=== PATIENT | male | born 1955 | race Caucasian/White ===

== ENCOUNTER 2017-06-18 01:16 | Inpatient (IN) ==
[2017-06-18] MEDS ORDERED: 0.9 % Sodium Chloride 500 ML IVC ONE (01:20)
--- NOTE | 2017-06-18 01:25 | Emergency Department Note ---
Disposition Clinical Impression: Chest pain Qualifiers: Chest pain type: unspecified Qualified Code(s): R07.9 - Chest pain, unspecified Hypertension Qualifiers: Hypertension type: unspecified Qualified Code(s): I10 - Essential (primary) hypertension Disposition: Admitted As Inpatient Condition: Fair [facility] Provider[facility] - Forms: ED Satisfaction Letter Time of Disposition: 02:23 Chest Pain HPI - General Chief Complaint: ED Chest Pain Time Seen by Provider: 06/18/17 01:19 Source: patient Mode of arrival: EMS Limitations: no limitations Vital Signs Reviewed: Yes Nursing Notes Reviewed: Yes - History of Present Illness HPI Narrative: 62-year-old male with history of hypertension, CAD presents for evaluation of chest pain. [facility] and was admitted there for fever with UTI. Patient states that he started developed chest pain peroxide 3 hours prior to arrival. Patient reports retrosternal chest pain without radiation. Nonexertional. Patient reports some diaphoresis and some nausea and vomiting. Patient was given antiemetics which improved vomiting. He also has a history of A. fib. Patient was transported via EMS. Patient was started on a nitroglycerin drip which is seen to improve his chest pain. - Related Data Home Medications Medication Instructions Recorded Confirmed Allopurinol [Zyloprim 300 MG] 300 mg PO DAILY 07/14/15 07/14/15 Aspirin Enteric Coated [Aspirin EC] 81 mg PO DAILY 07/14/15 07/14/15 Atorvastatin [Lipitor] 40 mg PO DAILY 07/14/15 07/14/15 BuPROPion SR (12 HR) [Wellbutrin 150 mg PO DAILY 07/14/15 07/14/15 SR] Cetirizine HCl [Zyrtec] 10 mg PO HS 07/14/15 07/14/15 Cholecalciferol (D-3) [Vitamin D] 1,000 unit PO DAILY 07/14/15 07/14/15 Cyanocobalamin (B-12) [Vitamin B12] 1,000 mcg PO DAILY 07/14/15 07/14/15 Mirtazapine [Remeron] 30 mg PO HS 07/14/15 07/14/15 Omeprazole [PriLOSEC] 20 mg PO DAILY 07/14/15 07/14/15 Spironolactone [Aldactone] 25 mg PO BID 07/14/15 07/14/15 Tizanidine HCl 4 mg PO BID 07/14/15 07/14/15 Previous Rx's Medication Instructions Recorded Diltiazem CD (24hr) [Cardizem CD] 120 mg PO DAILY #30 cap.er.24h 07/16/15 Metoprolol [Lopressor] 50 mg PO BID #60 tablet 07/16/15 Rivaroxaban [Xarelto] 20 mg PO 1700 #30 tablet 07/16/15 Allergies Allergy/AdvReac Type Severity Reaction Status Date / Time No Known Allergies Allergy Verified 07/14/15 14:01 All systems ED: reviewed and negative except as stated. Constitutional: Denies: fever Cardiovascular: Reports: chest pain Respiratory: Reports: dyspnea. Denies: cough, sputum production Gastrointestinal: Reports: nausea, vomiting. Denies: abdominal pain Chest Pain PMH - Past Medical History Medical history: Reports: coronary artery disease, hypertension, myocardial infarction, other (BPH, gout, adrenal tumor) Psychiatric history: Reports: anxiety, depression, PTSD - Social History Smoking Status: Never smoker Alcohol use: Reports: none Drug use: Reports: none Physical Exam - General Limitations: no limitations General appearance: alert, in no apparent distress - Head Head exam: atraumatic - Eye Eye exam: Present: normal appearance - ENT ENT exam: normal exam, normal oropharynx, mucous membranes moist - Neck Neck exam: Present: normal inspection - Chest Chest inspection: Present: normal inspection, symmetric chest wall rise - Respiratory Respiratory exam: Present: normal lung sounds bilaterally. Absent: respiratory distress - Cardiovascular Cardiovascular exam: Present: normal rhythm, tachycardia. Absent: systolic murmur - Abdominal Exam Abdominal exam: Present: soft, Non-Tender - Extremities Exam Extremities exam: Present: normal inspection. Absent: pedal edema - Expanded Lower Extremity Exam Neurovascular/Tendon exam: Present: normal capillary refill - Back Exam Back exam: Present: normal inspection - Neurological Exam Neurological exam: Present: alert, oriented X3, CN II-XII intact - Skin Skin exam: Present: warm, dry, intact, normal color Course Course Narrative: [facility] had a CT abd/pelvis which revealed no acute abnormalities. Patient was also given antibiotics for presumed UTI. Patient medication list reveals that he is on antibiotic for his A. fib. Patient will get basic cardiopulmonary evaluation with labs, EKG and chest x-ray. Patient will require admission to the hospital. - Reevaluation(s) Reevaluation #1: Patient's chest pain is down to a 3 and improving the nitroglycerin. Time: 02:15 Reevaluation #2: Repeat EKG shows sinus rhythm with marked sinus arrhythmia. Patient's ST depressions that were not V3 V4 and V5 are improving. Patient's pain is also improving. Patient is on Xarelto and anticoagulation was not given any emergency department. Time: 02:21 Vital Signs Temperature 98.2 F 06/18/17 01:24 Pulse Rate 90 06/18/17 01:24 Respiratory Rate 26 06/18/17 01:24 Blood Pressure 195/135 06/18/17 01:24 O2 Sat by Pulse Oximetry 96 06/18/17 01:24 Temperature 98.2 F 06/18/17 01:24 Pulse Rate 74 06/18/17 01:49 Respiratory Rate 18 06/18/17 01:49 Blood Pressure 170/102 06/18/17 02:02 O2 Sat by Pulse Oximetry 96 06/18/17 01:49 Oxygen Delivery Oxygen Delivery Nasal Cannula Chest Pain - [facility] Narrative Medical decision making narrative: Patient presented from the [facility] for concerns of chest pain. Patient was admitted at the [facility] for a UTI and was on antibiotics when the patient started developed chest pain earlier today. Patient's chest pain was retrosternal nonexertional. Patient does have a cardiac history. Patient was treated with escalating doses of IV nitroglycerin. Patient received full dose aspirin prior to ED arrival. Patient is also anticoagulated on Xarelto for his A. fib. Patient's initial 12-lead showed ST depression in V3 V4 V5 no signs of ST elevation. Given the patient's concerning cardiac history and presentation the patient will be admitted to hospital service for further evaluation and monitoring with likely provocative stress testing. - Lab Data Lab results reviewed: Yes I reviewed the patient's lab results. Result diagrams: 06/18/17 01:34 06/18/17 01:34 Lab Results 06/18/17 06/18/17 06/18/17 Range/Units 01:34 01:34 01:34 WBC (4.3-11.1) K/mcL RBC (4.19-5.50) M/mcL Hgb (12.9-16.9) g/dL Hct (37.5-50.1) % MCV (83.0-100.0) fL MCH (28.0-33.3) pg MCHC (31.6-35.5) g/dL RDW (11.5-14.5) % Plt Count (140-400) K/mcL MPV (9.4-12.4) fL Immature Gran % (0-4) % Seg Neutrophils % % Lymphocytes % % Monocytes % % Eosinophils % % Basophils % % Neutrophils # (1.6-8.9) K/mcL Lymphocytes # (0.6-4.6) K/mcL Monocytes # (0.0-1.3) K/mcL Eosinophils # (0.0-0.6) K/mcL Basophils # (0.0-0.2) K/mcL PT 12.9 H (9.4-12.1) Seconds INR 1.2 APTT 27.4 (26.0-36.0) Seconds Sodium (136-145) mEq/L Potassium (3.5-5.1) mEq/L Chloride (98-107) mEq/L Carbon Dioxide (23-29) mEq/L BUN (8-23) mg/dL Creatinine (0.70-1.30) mg/dL Est GFR ( Amer) (> 60) Est GFR (Non-Af Amer) (> 60) BUN/Creatinine Ratio (6-26) Glucose (70-105) mg/dL Calculated Osmolality (280-300) Calcium (8.6-10.3) mg/dL Troponin I (< 0.04) ng/mL B-Natriuretic Peptide 48 (Less than 100) pg/mL Lipase 14 (11-82) Units/L 06/18/17 06/18/17 Range/Units 01:34 01:34 WBC 16.1 H (4.3-11.1) K/mcL RBC 5.04 (4.19-5.50) M/mcL Hgb 15.7 (12.9-16.9) g/dL Hct 43.3 (37.5-50.1) % MCV 85.9 (83.0-100.0) fL MCH 31.2 (28.0-33.3) pg MCHC 36.3 H (31.6-35.5) g/dL RDW 19.9 H (11.5-14.5) % Plt Count 241 (140-400) K/mcL MPV 11.0 (9.4-12.4) fL Immature Gran % 1.0 (0-4) % Seg Neutrophils % 88.5 % Lymphocytes % 5.0 % Monocytes % 5.4 % Eosinophils % 0.0 % Basophils % 0.1 % Neutrophils # 14.2 H (1.6-8.9) K/mcL Lymphocytes # 0.8 (0.6-4.6) K/mcL Monocytes # 0.9 (0.0-1.3) K/mcL Eosinophils # 0.0 (0.0-0.6) K/mcL Basophils # 0.0 (0.0-0.2) K/mcL PT (9.4-12.1) Seconds INR APTT (26.0-36.0) Seconds Sodium 138 (136-145) mEq/L Potassium 3.7 (3.5-5.1) mEq/L Chloride 108 H (98-107) mEq/L Carbon Dioxide 14 L (23-29) mEq/L BUN 12 (8-23) mg/dL Creatinine 0.83 (0.70-1.30) mg/dL Est GFR ( Amer) > 60 (> 60) Est GFR (Non-Af Amer) > 60 (> 60) BUN/Creatinine Ratio 14 (6-26) Glucose 199 H (70-105) mg/dL Calculated Osmolality 291 (280-300) Calcium 10.1 (8.6-10.3) mg/dL Troponin I < 0.03 (< 0.04) ng/mL B-Natriuretic Peptide (Less than 100) pg/mL Lipase (11-82) Units/L - Radiology Data Radiology results reviewed: Yes I reviewed the patient's radiology results. Chest X-Ray 06/18/17 01:19 IMPRESSION: No acute process. D/ / Rommel Pina MD / Rommel Pina MD Interpreting Provider: Rommel Pina MD - EKG Data EKG attestation: Yes I reviewed and interpreted this EKG. EKG shows normal: sinus rhythm Rate: tachycardia Rhythm: NSR [place]/QRS: normal ST segment depression in: v3, v4, v5 T wave inversions noted in: v1 When compared to previous EKG there are: changes noted Interpretation: nonspecific ST-T wave changes S.B.A.Cynthia - S.B.AAisha Situation: Demographics Background: Presenting Complaint Assessment: Vital Signs, Patient/Family Expectation Recommendation: Barrier(s) to disposition, Recommendation based on pending studies, treatments, or consults S.B.A.RMark Report Given to: Dr. Sheldon OteroAAisha Repor Time: 02:27
[2017-06-18] MEDS ORDERED: Ondansetron 4 MG/2 ML VIAL IVP ONE (01:27)
[2017-06-18] MEDS: Nitroglycerin 25 MG/250 ML INFUS..BTL IVC SCH ×3 (01:31→10:53)
[2017-06-18 01:48] LABS: Basophils % 0.1 %; Hematocrit 43.3 % (37.5-50.1); Hemoglobin 15.7 g/dL (12.9-16.9); Lymphocytes # 0.8 K/mcL (0.6-4.6); Mean Corpuscular HGB Conc 36.3 g/dL (31.6-35.5); Mean Corpuscular Hemoglobin 31.2 pg (28.0-33.3); Mean Corpuscular Volume 85.9 fL (83.0-100.0); Monocytes # 0.9 K/mcL (0.0-1.3); Monocytes % 5.4 %; Neutrophils # 14.2 K/mcL (1.6-8.9); Platelet Count 241 K/mcL (140-400); Red Blood Count 5.04 M/mcL (4.19-5.50); Red Cell Distribution Width 19.9 % (11.5-14.5); Segmented Neutrophils % 88.5 %
[2017-06-18 01:53] LABS: INR 1.2; Prothrombin Time 12.9 Seconds (9.4-12.1)
[2017-06-18 01:56] LABS: Activated Partial Thrombo Time 27.4 Seconds (26.0-36.0)
[2017-06-18 02:09] LABS: BUN/Creatinine Ratio 14 (6-26); Blood Urea Nitrogen 12 mg/dL (8-23); Calcium 10.1 mg/dL (8.6-10.3); Carbon Dioxide 14 mEq/L (23-29); Chloride 108 mEq/L (98-107); Glucose 199 mg/dL (70-105); Osmolality,Calculated 291 (280-300); Potassium 3.7 mEq/L (3.5-5.1); Sodium 138 mEq/L (136-145); Troponin I < 0.03 ng/mL (< 0.04); eGFR For African Americans > 60 (> 60); eGFR For Non-African Americans > 60 (> 60)
[2017-06-18 02:56] LABS: Bilirubin,Urine Negative (Negative); Blood,Urine Negative (Negative); Clarity,Urine Clear (Clear); Color,Urine Yellow (Yellow); Glucose,Urine (UA) Normal (Normal); Ketones,Urine >=160 mg/dL (Negative); Leukocyte Esterase,Urine Negative (Negative); Nitrite,Urine Negative (Negative); PH,Urine 6.5 pH Units (5.0-8.0); Protein,Urine 30 mg/dL (Neg-Trace); Specific Gravity,Urine 1.027 (1.010-1.025); Urobilinogen,Urine Normal (Normal)
[2017-06-18 02:58] LABS: Bacteria,Urine Few per hpf (None-Few); Hyaline Casts,Urine Few per lpf (None-Few); Squamous Epithelial Cell,Urine Moderate per lpf (None-Few)
--- NOTE | 2017-06-18 03:02 | Emergency Department Note ---
Disposition Clinical Impression: Chest pain Qualifiers: Chest pain type: unspecified Qualified Code(s): R07.9 - Chest pain, unspecified Hypertension Qualifiers: Hypertension type: unspecified Qualified Code(s): I10 - Essential (primary) hypertension Disposition: Admitted As Inpatient Condition: Fair [facility] [Primary Care Provider[facility] - Forms: ED Satisfaction Letter General Adult HPI - General Chief complaint: ED Chest Pain Stated complaint: chest pain Time Seen by Provider: 06/18/17 01:19 Source: patient Mode of arrival: EMS Limitations: no limitations Nursing Notes Reviewed: Yes Vital Signs Reviewed: Yes - History of Present Illness Pain Scale: 3 - Related Data Home Medications Medication Instructions Recorded Confirmed Allopurinol [Zyloprim 300 MG] 300 mg PO DAILY 07/14/15 07/14/15 Aspirin Enteric Coated [Aspirin EC] 81 mg PO DAILY 07/14/15 07/14/15 Atorvastatin [Lipitor] 40 mg PO DAILY 07/14/15 07/14/15 BuPROPion SR (12 HR) [Wellbutrin 150 mg PO DAILY 07/14/15 07/14/15 SR] Cetirizine HCl [Zyrtec] 10 mg PO HS 07/14/15 07/14/15 Cholecalciferol (D-3) [Vitamin D] 1,000 unit PO DAILY 07/14/15 07/14/15 Cyanocobalamin (B-12) [Vitamin B12] 1,000 mcg PO DAILY 07/14/15 07/14/15 Mirtazapine [Remeron] 30 mg PO HS 07/14/15 07/14/15 Omeprazole [PriLOSEC] 20 mg PO DAILY 07/14/15 07/14/15 Spironolactone [Aldactone] 25 mg PO BID 07/14/15 07/14/15 Tizanidine HCl 4 mg PO BID 07/14/15 07/14/15 Previous Rx's Medication Instructions Recorded Diltiazem CD (24hr) [Cardizem CD] 120 mg PO DAILY #30 cap.er.24h 07/16/15 Metoprolol [Lopressor] 50 mg PO BID #60 tablet 07/16/15 Rivaroxaban [Xarelto] 20 mg PO 1700 #30 tablet 07/16/15 Allergies Allergy/AdvReac Type Severity Reaction Status Date / Time No Known Allergies Allergy Verified 07/14/15 14:01 Constitutional: Denies: fever Cardiovascular: Reports: chest pain Respiratory: Reports: dyspnea. Denies: cough, sputum production Gastrointestinal: Reports: nausea, vomiting. Denies: abdominal pain Past Medical History - Past Medical History Medical history: Reports: coronary artery disease, hypertension, myocardial infarction, other (BPH, gout, adrenal tumor) Psychiatric history: Reports: anxiety, depression, PTSD - Social History Smoking Status: Never smoker Smokeless Tobacco Status: No Alcohol use: Reports: none Drug use: Reports: none Physical Exam - General Limitations: no limitations General appearance: alert, in no apparent distress Course Vital Signs Temperature 98.2 F 06/18/17 01:24 Pulse Rate 90 06/18/17 01:24 Respiratory Rate 26 06/18/17 01:24 Blood Pressure 195/135 06/18/17 01:24 O2 Sat by Pulse Oximetry 96 06/18/17 01:24 Temperature 98.2 F 06/18/17 01:24 Pulse Rate 74 06/18/17 01:49 Respiratory Rate 18 06/18/17 01:49 Blood Pressure 175/115 06/18/17 02:28 O2 Sat by Pulse Oximetry 96 06/18/17 01:49 Oxygen Delivery Oxygen Delivery Nasal Cannula Medical Decision Making - Lab Data Result diagrams: 06/18/17 01:34 06/18/17 01:34 Lab Results 06/18/17 06/18/17 06/18/17 Range/Units 01:34 01:34 01:34 WBC (4.3-11.1) K/mcL RBC (4.19-5.50) M/mcL Hgb (12.9-16.9) g/dL Hct (37.5-50.1) % MCV (83.0-100.0) fL MCH (28.0-33.3) pg MCHC (31.6-35.5) g/dL RDW (11.5-14.5) % Plt Count (140-400) K/mcL MPV (9.4-12.4) fL Immature Gran % (0-4) % Seg Neutrophils % % Lymphocytes % % Monocytes % % Eosinophils % % Basophils % % Neutrophils # (1.6-8.9) K/mcL Lymphocytes # (0.6-4.6) K/mcL Monocytes # (0.0-1.3) K/mcL Eosinophils # (0.0-0.6) K/mcL Basophils # (0.0-0.2) K/mcL PT 12.9 H (9.4-12.1) Seconds INR 1.2 APTT 27.4 (26.0-36.0) Seconds Sodium (136-145) mEq/L Potassium (3.5-5.1) mEq/L Chloride (98-107) mEq/L Carbon Dioxide (23-29) mEq/L BUN (8-23) mg/dL Creatinine (0.70-1.30) mg/dL Est GFR ( Amer) (> 60) Est GFR (Non-Af Amer) (> 60) BUN/Creatinine Ratio (6-26) Glucose (70-105) mg/dL Calculated Osmolality (280-300) Calcium (8.6-10.3) mg/dL Troponin I (< 0.04) ng/mL B-Natriuretic Peptide 48 (Less than 100) pg/mL Lipase 14 (11-82) Units/L Urine Color (Yellow) Urine Clarity (Clear) Urine pH (5.0-8.0) pH Units Ur Specific [place] (1.010-1.025) Urine Protein (Neg-Trace) mg/dL Urine Glucose (UA) (Normal) mg/dL Urine Ketones (Negative) mg/dL Urine Blood (Negative) Urine Nitrite (Negative) Urine Bilirubin (Negative) Urine Urobilinogen (Normal) mg/dL Ur Leukocyte Esterase (Negative) Ur Squamous Epith Cells (None-Few) per lpf Urine Bacteria (None-Few) per hpf Hyaline Casts (None-Few) per lpf 06/18/17 06/18/17 06/18/17 Range/Units 01:34 01:34 02:45 WBC 16.1 H (4.3-11.1) K/mcL RBC 5.04 (4.19-5.50) M/mcL Hgb 15.7 (12.9-16.9) g/dL Hct 43.3 (37.5-50.1) % MCV 85.9 (83.0-100.0) fL MCH 31.2 (28.0-33.3) pg MCHC 36.3 H (31.6-35.5) g/dL RDW 19.9 H (11.5-14.5) % Plt Count 241 (140-400) K/mcL MPV 11.0 (9.4-12.4) fL Immature Gran % 1.0 (0-4) % Seg Neutrophils % 88.5 % Lymphocytes % 5.0 % Monocytes % 5.4 % Eosinophils % 0.0 % Basophils % 0.1 % Neutrophils # 14.2 H (1.6-8.9) K/mcL Lymphocytes # 0.8 (0.6-4.6) K/mcL Monocytes # 0.9 (0.0-1.3) K/mcL Eosinophils # 0.0 (0.0-0.6) K/mcL Basophils # 0.0 (0.0-0.2) K/mcL PT (9.4-12.1) Seconds INR APTT (26.0-36.0) Seconds Sodium 138 (136-145) mEq/L Potassium 3.7 (3.5-5.1) mEq/L Chloride 108 H (98-107) mEq/L Carbon Dioxide 14 L (23-29) mEq/L BUN 12 (8-23) mg/dL Creatinine 0.83 (0.70-1.30) mg/dL Est GFR ( Amer) > 60 (> 60) Est GFR (Non-Af Amer) > 60 (> 60) BUN/Creatinine Ratio 14 (6-26) Glucose 199 H (70-105) mg/dL Calculated Osmolality 291 (280-300) Calcium 10.1 (8.6-10.3) mg/dL Troponin I < 0.03 (< 0.04) ng/mL B-Natriuretic Peptide (Less than 100) pg/mL Lipase (11-82) Units/L Urine Color Yellow (Yellow) Urine Clarity Clear (Clear) Urine pH 6.5 (5.0-8.0) pH Units Ur Specific [place] 1.027 H (1.010-1.025) Urine Protein 30 H (Neg-Trace) mg/dL Urine Glucose (UA) Normal (Normal) mg/dL Urine Ketones >=160 H (Negative) mg/dL Urine Blood Negative (Negative) Urine Nitrite Negative (Negative) Urine Bilirubin Negative (Negative) Urine Urobilinogen Normal (Normal) mg/dL Ur Leukocyte Esterase Negative (Negative) Ur Squamous Epith Cells Moderate H (None-Few) per lpf Urine Bacteria Few (None-Few) per hpf Hyaline Casts Few (None-Few) per lpf Critical Care Time Critical Care Time: Yes Total Critical Care Time: 35 Attestation: Critical care performed: Time is exclusive of separately billable procedures. Time includes: direct patient care, patient reassessment, coordination of patient care, interpretation of data (laboratory data, radiology data, and respiratory data), review of patient's medical records, medical consultation and documentation of patient care. Procedures included in critical care time: Procedures excluded from critical care time: Attestation Statement - Attestation Attestation: I, Geoffrey Mayer MD, personally evaluated this patient and discussed their management with the resident physician. I reviewed the resident's note and agree with the documented findings, medical decision making, and plan of care. 62-year-old male transferred from the [facility] hospital for chest pain. Patient was admitted at the [facility] earlier today for fever for UTI. This evening he developed substernal chest pain about 3 hours prior to arrival. EKG obtained at the [facility] showed no acute changes. Troponin was reportedly normal. Patient received nitroglycerin sublingual 2 with no relief in the chest pain. He was started on a nitroglycerin drip and transferred here for further evaluation. On arrival here the patient states that the chest pain has improved significantly with the nitroglycerin drip but is still present. On examination patient is a well-developed well-nourished male in no acute distress. He is alert and oriented 3. There is no cyanosis or diaphoresis. Chest is nontender to palpation. Breath sounds are clear and equal bilaterally. Heart regular rate and rhythm. Abdomen soft and nontender with normal bowel sounds. Labs reviewed. Troponin normal. Chest x-ray negative. EKG shows a sinus tachycardia with a heart rate of 102. Mild anterior ST segment depression in V3 through V5. A repeat EKG obtained 1 hour later shows a sinus rhythm with ventricular rate of 85 and improvement in the anterior ST segment depressions. Patient was continued on the nitroglycerin infusion. The hospitalist, Dr. Chung , was consulted and accepted admission of the patient.
[2017-06-18] MEDS ORDERED: *HR* OxyCODONE Immed Rel 5 MG TABLET PO PRN (03:46)
[2017-06-18] MEDS ORDERED: *HR* HYDROcodone/Acet 5/325 mg TABLET PO PRN (03:46)
[2017-06-18] MEDS ORDERED: Acetaminophen 325 MG TABLET PO PRN (03:46)
[2017-06-18] MEDS ORDERED: Naloxone 0.4 MG/ML INJ IVP PRN (03:46)
[2017-06-18] MEDS: 0.9 % Sodium Chloride 1,000 ML IVC SCH ×2 (04:18→10:53)
[2017-06-18] MEDS: Ondansetron 4 MG/2 ML VIAL IVP PRN (04:18)
[2017-06-18] MEDS ORDERED: *HR* Promethazine 25 MG/ML VIAL IVP ONE (05:23)
[2017-06-18] MEDS ORDERED: *HR* Promethazine 25 MG/ML VIAL IVP PRN (06:21)
--- NOTE | 2017-06-18 06:36 | Internal Med History&Physical ---
Date of Encounter: 06/18/17 Time of Encounter: 03:00 Internal Medicine - H&P: HPI Chief complaint: Chest pain Admitted From: Intrahospital Transfer Plans for Post Hospital Care: Home History of present illness: Mr. Roman is a 62 year old male transferred to ER by [place] for chest pain. Past medical history is significant for paroxysmal A. fib on xarelto, PTSD, anxiety, hypertension. Patient said he starts to have fever for about 2 days. The temperature is about 100. Patient went to [facility] hospital and was diagnosed as UTI and treated with Rocephin. Since this morning, he started to have nausea and vomiting, the vomiting is clear liquid, no blood in it nor coffee ground emesis. Patient denies cough, shortness of breath, or diarrhea. Since this afternoon, he started to have chest pain, which he described as whole chest ache, no radiation. Patient has diaphoresis. In our ER, the EKG shows ST depression on V3-V5. Patient was started on nitroglycerin drip, his chest pain decreased from 9/10 to 1-2/10, and repeated EKG shows ST depression has improved. Patient was admitted for further management. Past Med Surg Social Fam HX - Past Medical History Medical history: coronary artery disease, hypertension, myocardial infarction, other Psychiatric history: anxiety, depression, PTSD - Social History Smoking Status: Never smoker Smokeless Tobacco Status: No Alcohol use: occasionally Drug use: none - Family History Father History Unknown: Yes Adopted: No Hx Family Cardiac Disorders: Yes (ANGINA.) Mother History Unknown: Yes Adopted: No Living Status: Hx Family Neurologic Disorders: Yes (GRAEME) Internal Medicine - H&P: Meds Allopurinol [Zyloprim 300 MG] 300 mg PO DAILY 07/14/15 [History] Aspirin Enteric Coated [Aspirin EC] 81 mg PO DAILY 07/14/15 [History] Atorvastatin [Lipitor] 40 mg PO DAILY 07/14/15 [History] BuPROPion SR (12 HR) [Wellbutrin SR] 150 mg PO DAILY 07/14/15 [History] Cetirizine HCl [Zyrtec] 10 mg PO HS 07/14/15 [History] Cholecalciferol (D-3) [Vitamin D] 1,000 unit PO DAILY 07/14/15 [History] Cyanocobalamin (B-12) [Vitamin B12] 1,000 mcg PO DAILY 07/14/15 [History] Mirtazapine [Remeron] 30 mg PO HS 07/14/15 [History] Omeprazole [PriLOSEC] 20 mg PO DAILY 07/14/15 [History] Spironolactone [Aldactone] 25 mg PO BID 07/14/15 [History] Tizanidine HCl 4 mg PO BID 07/14/15 [History] Diltiazem CD (24hr) [Cardizem CD] 120 mg PO DAILY #30 cap.er.24h 07/16/15 [Rx] Metoprolol [Lopressor] 50 mg PO BID #60 tablet 07/16/15 [Rx] Rivaroxaban [Xarelto] 20 mg PO 1700 #30 tablet 07/16/15 [Rx] 3 Allergy/AdvReac Type Severity Reaction Status Date / Time No Known Allergies Allergy Verified 07/14/15 14:01 All Systems PM: A 10-system review of systems was performed and is negative for pertinent findings except as documented above in the HPI. - Constitutional Vitals: Temp Pulse Resp BP Pulse Ox 98.6 F 105 17 150/108 88 06/18/17 05:46 06/18/17 04:36 06/18/17 04:34 06/18/17 06:16 06/18/17 05:48 General appearance: Present: mild distress, A&O X 3, answers questions appropriately - Head Head exam: Present: atraumatic, normocephalic - Eye Eye exam: Present: PERRL, conjuntiva pink, sclera anicteric Pupils: Present: PERRL - Neck Neck exam general surgery: Present: supple, trachea midline. Absent: lymphadenopathy - Respiratory Respiratory exam: Present: CTAB. Absent: accessory muscle use, rales, rhonchi, wheezes - Cardiovascular Cardiovascular exam: Present: RRR, +S1, +S2. Absent: diastolic murmur, gallop, rubs, systolic murmur - GI/Abdominal GI/Abdominal exam: Present: normal bowel sounds, soft, no peritoneal signs. Absent: distended, tenderness - Extremities Exam Extremities exam: Present: warm, radial pulses palpable and symmetrical. Absent : calf tenderness, cyanotic, pedal edema - Neurological Exam Neurological exam: Present: CN II-XII intact, oriented X3, no focal deficits. Absent: pronater drift, facial droop, speech deficit - Skin Skin exam: Present: dry, intact Internal Med - H&P Results - Labs CBC & Chem 7: 06/18/17 01:34 06/18/17 01:34 - Assessment and plan (1) SIRS (systemic inflammatory response syndrome) Current Visit: Yes Status: Acute Assessment and plan: Patient has fever, leukocytosis, and tachycardia. Meet the criteria of SIRS. No clear infectious site identified. In [place], he was suspected as UTI, however, repeat UA in our hospital seems negative. Patient had CT abdomen in [place], which is unremarkable. Chest x-ray is negative in our hospital. Patient denies headache or any neuro symptoms. - We will treat patient with IV fluid and broad-spectrum antibiotics Zosyn - Blood culture - Treat nausea and vomiting. Keep patient on clear liquid diet. - Closely monitor patient (2) Atrial fibrillation Current Visit: No Status: Acute Assessment and plan: Right now sinus rhythm. Continue home medication Cardizem and metoprolol for rate control. Continue xarelto for anticoagulations. Qualifiers: Atrial fibrillation type: paroxysmal Qualified Code(s): I48.0 - Paroxysmal atrial fibrillation (3) Chest pain Current Visit: Yes Status: Acute Assessment and plan: Patient has chest pain with EKG change per ER physician. Chest pain respond to nitroglycerin drip. Need to rule out ACS. - Place patient on continuous cardiac monitoring - Track 3 sets of troponin - Continue nitroglycerin drip. - Repeat EKG. - Echocardiogram - Consult cardiology for further management Qualifiers: Chest pain type: unspecified Qualified Code(s): R07.9 - Chest pain, unspecified (4) DVT prophylaxis Current Visit: No Status: Acute Assessment and plan: Patient is on xarelto (5) Hypertension Current Visit: Yes Status: Acute Assessment and plan: Continue home medications. Hydralazine IV when necessary. Patient also is on nitroglycerin drip. Closely monitor BP per protocol of NTG drip Qualifiers: Hypertension type: essential hypertension Qualified Code(s): I10 - Essential (primary) hypertension - Time Spent With Patient Total time spent is greater than 50% in coordination of care (as documented) at patient's floor/unit and/or counseling patient: 40 min Greater than 35 minutes
[2017-06-18 07:05] LABS: BUN/Creatinine Ratio 16 (6-26); Basophils % 0.2 %; Blood Urea Nitrogen 14 mg/dL (8-23); Calcium 9.7 mg/dL (8.6-10.3); Carbon Dioxide 18 mEq/L (23-29); Chloride 108 mEq/L (98-107); Glucose 187 mg/dL (70-105); Hematocrit 41.4 % (37.5-50.1); Hemoglobin 14.3 g/dL (12.9-16.9); Immature Granulocytes % 0.7 % (0-4); Lymphocytes # 0.9 K/mcL (0.6-4.6); Lymphocytes % 5.6 %; Magnesium 1.7 mg/dL (1.6-2.6); Mean Corpuscular HGB Conc 34.5 g/dL (31.6-35.5); Mean Platelet Volume 11.1 fL (9.4-12.4); Monocytes # 1.2 K/mcL (0.0-1.3); Monocytes % 7.5 %; Neutrophils # 13.1 K/mcL (1.6-8.9); Osmolality,Calculated 289 (280-300); Platelet Count 220 K/mcL (140-400); Potassium 3.7 mEq/L (3.5-5.1); Red Blood Count 4.76 M/mcL (4.19-5.50); Red Cell Distribution Width 20.4 % (11.5-14.5); Sodium 137 mEq/L (136-145); eGFR For African Americans > 60 (> 60); eGFR For Non-African Americans > 60 (> 60)
--- NOTE | 2017-06-18 07:51 | Internal Med Progress Note ---
<Charli Lanza - Last Filed: 06/18/17 15:40> Date of Encounter: 06/18/17 Time of Encounter: 07:51 - Assessment and plan (1) Chest pain Current Visit: Yes Status: Acute Assessment and plan: Risk factors include HTN, previous determined NSTEMI, Patient has chest pain with EKG change per ER physician. ST depression in V5-V6. trops negative x2. Last LHC 12/18/13 - an 80% stenosis in the mid PDA, and a 90% stenosis in the second obtuse marginal branch. Last echo 12/16/13 LVEF 65%. Patient was started on nitro drip which has resolved his chest pain. Will further workup to rule out ACS and pheochromocytoma. - continue tele monitoring - trend trop - continue nitro drip for now - repeat EKG - echo - pending - cardio consulted, appreciate their input - need to r/o pheo - patient has been anxious, previously seen adrenal mass, and HTN more in the last month. Ordered MRI, and 24 hour urine metanephrine. Do not give BB, home BB stopped. Increased hydralazine to 50 PO q6hr scheduled. Instructions to put hydralazine to IV if SBP >160 Qualifiers: Chest pain type: unspecified Qualified Code(s): R07.9 - Chest pain, unspecified (2) Atrial fibrillation Current Visit: Yes Status: Acute Assessment and plan: Patient is currently mildly tachy but is in normal rate and rhythm Right now sinus rhythm. - continue home Cardizem and metoprolol XL for rate control - continue xarelot for anticoagulation - continue tele monitoring on the floor Qualifiers: Atrial fibrillation type: paroxysmal Qualified Code(s): I48.0 - Paroxysmal atrial fibrillation (3) Hypertension Current Visit: Yes Status: Acute Assessment and plan: Patient reports that he religiously takes BP meds. he had emesis 30 min after taking meds yesterday. On admission BP 195/135, current 157/104. Will closely watch. Concerns for pheo - continue home Rx - closely monitor BP - see above for further management Qualifiers: Hypertension type: essential hypertension Qualified Code(s): I10 - Essential (primary) hypertension (4) SIRS (systemic inflammatory response syndrome) Current Visit: Yes Status: Acute Assessment and plan: Patient has fever, leukocytosis, and tachycardia. Meet the criteria of SIRS. No clear infectious site identified. In [place], he was suspected as UTI, however, repeat UA in our hospital seems negative. Patient had CT abdomen in [place], which is unremarkable. Chest x-ray is negative in our hospital. Patient denies headache or any neuro symptoms. - continue zosyn until cultures return. Continue IVF - Keep patient on clear liquid diet. - Closely monitor patient (5) Nausea & vomiting Current Visit: Yes Status: Acute Assessment and plan: 1 week hx of n/v. currently controlled patient continues to have "Dry heaving" - continue zofran PRN Qualifiers: Qualified Code(s): R11.2 - Nausea with vomiting, unspecified (6) Adrenal nodule Current Visit: Yes Status: Acute Assessment and plan: adrenal nodule seen on CT abd at [place], patient has appointment with Carmella Aguilar on 07/23/17 (7) DVT prophylaxis Current Visit: Yes Status: Acute Assessment and plan: Patient is on xarelto (8) Alcohol use Current Visit: Yes Status: Acute Assessment and plan: Patient admits to drinking. Patient states he has only a "couple of drinks", but patient may be minimizing drinking as patient is a poor historian. Patient currently does not have withdrawal symptoms and last drink has been over a week ago. could also be a contributing factor for HTN, and anxiety. - ordered thiamine - ciwa protocol - 25 mg librium q6hrs; hold if patient is sedated - Time Spent With Patient Total time spent is greater than 50% in coordination of care (as documented) at patient's floor/unit and/or counseling patient: - Subjective Interval history: Mr Roman is seen and examined in the ED hold bed. PMHx of anxiety, afib htn, previous negative cardiac workup, etoh use. He states that his symptoms started after a week long of feverish feeling, and vomited once and went to the [place] for workup. In [place] [facility] patient had chest pain, patient was found to have EKG abnormalities. and patient was started on nitro drip. Today patient continues to feel anxious, does not have chest pain after he was started on nitro drip. Patient does report that he thinks he threw up his medications yesterday, he vomited <30 min of consumption of meds yesterday. Patient denies sob, chest pain, chills, edema. Patient does mention that he has an endocrine appointment at [place] for something that was seen on his adrenal gland on imaging on July 23. - Constitutional Vitals: Temp Pulse Resp BP Pulse Ox 98.6 F 105 17 157/104 88 06/18/17 05:46 06/18/17 04:36 06/18/17 04:34 06/18/17 07:06 06/18/17 05:48 General appearance: Present: mild distress, A&O X 3, pleasant, answers questions appropriately Exam: patient is anxious and restless during exam - Head Head exam: Present: atraumatic, normocephalic - Eye Eye exam: Present: PERRL, conjuntiva pink, sclera anicteric Pupils: Present: PERRL - Neck Neck exam general surgery: Present: supple, trachea midline. Absent: lymphadenopathy - Respiratory Respiratory exam: Present: CTAB. Absent: accessory muscle use, rales, rhonchi, wheezes - Cardiovascular Cardiovascular exam: Present: tachycardia. Absent: diastolic murmur, gallop, rubs, systolic murmur - GI/Abdominal GI/Abdominal exam: Present: normal bowel sounds, soft, no peritoneal signs. Absent: distended, tenderness - Extremities Exam Extremities exam: Present: warm, radial pulses palpable and symmetrical. Absent : calf tenderness, cyanotic, pedal edema - Neurological Exam Neurological exam: Present: CN II-XII intact, oriented X3, no focal deficits. Absent: pronater drift, facial droop, speech deficit - Psychiatric Psychiatric exam: Present: anxious. Absent: flat affect, homicidal ideation, suicidal ideation Internal Medicine: Result - Labs CBC & Chem 7: 06/18/17 06:37 06/18/17 06:37 Labs: Short CBC 06/18/17 Range/Units 06:37 WBC 15.3 H (4.3-11.1) K/mcL Hgb 14.3 (12.9-16.9) g/dL Hct 41.4 (37.5-50.1) % Plt Count 220 (140-400) K/mcL Neutrophils # 13.1 H (1.6-8.9) K/mcL BMP 06/18/17 06:37 Sodium 137 Potassium 3.7 Chloride 108 H Carbon Dioxide 18 L BUN 14 Creatinine 0.85 Glucose 187 H Calcium 9.7 Cardiac Enzymes 06/18/17 Range/Units 06:37 Troponin I < 0.03 (< 0.04) ng/mL - ABG Interpretation ABG results: PT/INR, D-dimer PT 12.9 Seconds (9.4-12.1) H 06/18/17 01:34 Consult Discharge Plan - Plan [facility]errals: [facility]Primary Care Provider[facility] - <Reilly Funez H - Last Filed: 06/18/17 17:06> Date of Encounter: 06/18/17 - Assessment and plan (1) Atrial fibrillation Current Visit: Yes Status: Acute Qualifiers: Atrial fibrillation type: paroxysmal Qualified Code(s): I48.0 - Paroxysmal atrial fibrillation (2) Chest pain Current Visit: Yes Status: Acute Qualifiers: Chest pain type: unspecified Qualified Code(s): R07.9 - Chest pain, unspecified (3) DVT prophylaxis Current Visit: Yes Status: Acute (4) Hypertension Current Visit: Yes Status: Acute Qualifiers: Hypertension type: essential hypertension Qualified Code(s): I10 - Essential (primary) hypertension (5) SIRS (systemic inflammatory response syndrome) Current Visit: Yes Status: Acute (6) Nausea & vomiting Current Visit: Yes Status: Acute Qualifiers: Qualified Code(s): R11.2 - Nausea with vomiting, unspecified (7) Adrenal nodule Current Visit: Yes Status: Acute (8) Alcohol use Current Visit: Yes Status: Acute - Time Spent With Patient Total time spent is greater than 50% in coordination of care (as documented) at patient's floor/unit and/or counseling patient: - Constitutional Vitals: Temp Pulse Resp BP Pulse Ox 98.6 F 80 15 135/62 97 06/18/17 15:40 06/18/17 15:40 06/18/17 15:40 06/18/17 15:40 06/18/17 15:40 Internal Medicine: Result - Labs CBC & Chem 7: 06/18/17 06:37 06/18/17 06:37 Labs: Short CBC 06/18/17 Range/Units 06:37 WBC 15.3 H (4.3-11.1) K/mcL Hgb 14.3 (12.9-16.9) g/dL Hct 41.4 (37.5-50.1) % Plt Count 220 (140-400) K/mcL Neutrophils # 13.1 H (1.6-8.9) K/mcL BMP 06/18/17 06:37 Sodium 137 Potassium 3.7 Chloride 108 H Carbon Dioxide 18 L BUN 14 Creatinine 0.85 Glucose 187 H Calcium 9.7 Cardiac Enzymes 06/18/17 06/18/17 Range/Units 06:37 13:02 Troponin I < 0.03 < 0.03 (< 0.04) ng/mL - ABG Interpretation ABG results: PT/INR, D-dimer PT 12.9 Seconds (9.4-12.1) H 06/18/17 01:34 - Attending Attestation adrenal nodule acompanied by tachycardia, diaphoresis, elevated BP, anxiety consider possible pheochromocytoma order 24 urine metanephrines, MRI of the abdomen avoid BB, use Hydralazine Hx OF ETOH use Librium no evidence of infection , may discontinue Zosyn I examined this patient and my medical decision-making was reviewed with the Resident Physician. I agree with the documented findings, disposition and treatment plan as described except to the extent set forth below.
[2017-06-18] MEDS: BuPROPion SR (12 HR) 150 MG TABLET PO SCH (08:20)
[2017-06-18] MEDS: Diltiazem CD (24hr) 120 MG CAPSULE PO SCH (08:20)
[2017-06-18] MEDS: Aspirin Enteric Coated 81 MG Tablet PO SCH (08:21)
[2017-06-18] MEDS: Piperacillin/Tazobactam 3.375 GM in 0.9 % Sodium Chloride Mini Bag 100 ML IVPB SCH ×2 (08:21→16:35)
[2017-06-18] MEDS ORDERED: cefTRIAXone 1,000 MG in Water for inj. (sterile) 20 ML 10 ML IVP SCH (09:00)
--- NOTE | 2017-06-18 10:16 | Cardiology Consult Note ---
<Kahlil Villasenor - Last Filed: 06/18/17 16:23> Date of Encounter: 06/18/17 Time of Encounter: 08:30 Assessment and Plan (1) Chest pain Current Visit: Yes Status: Acute Atypical chest pain in setting of possible infection/SIRS criteria - improving now EKG with some ST depressions that improving Troponin negative x3 Etiology is unlikely ACS - pain more likely secondary to wretching/possible infection Plan: - Continue ASA, statin, BB, ARB, CCB - Stop nitro drip - switch to Imdur 30 mg daily - Repeat TTE pending - final recommendations pending results - If no changes on TTE, unlikely to need further cardiac work-up Case discussed with Dr. Rosales - final recommendations pending his evaluation Qualifiers: Chest pain type: unspecified Qualified Code(s): R07.9 - Chest pain, unspecified (2) CAD (coronary artery disease) Current Visit: Yes Status: Chronic [facility] 2013 with minor CAD in major vessels, severe in small vessels Continue medical management for now pending TTE results Qualifiers: Coronary Disease-Associated Artery/Lesion type: [place] artery [place] vs. transplanted heart: [place] heart Associated angina: angina presence unspecified Qualified Code(s): I25.10 - Atherosclerotic heart disease of [place] coronary artery without angina pectoris (3) Hypertension Current Visit: Yes Status: Acute Initially SBP 195 - but now improving, most recent 158/91 Not sure if home meds were able to take effect yesterday due to vomiting Resume medications and continue to monitor Qualifiers: Hypertension type: essential hypertension Qualified Code(s): I10 - Essential (primary) hypertension (4) Atrial fibrillation Current Visit: Yes Status: Acute Currently NSR and normal HR - continue Xarelto Qualifiers: Atrial fibrillation type: paroxysmal Qualified Code(s): I48.0 - Paroxysmal atrial fibrillation (5) Leukocytosis Current Visit: Yes Status: Acute Unknown etiology at this time - on zosyn Management per primary team Qualifiers: Leukocytosis type: unspecified Qualified Code(s): D72.829 - Elevated white blood cell count, unspecified (6) SIRS (systemic inflammatory response syndrome) Current Visit: Yes Status: Acute SIRS criteria with no confirmed source of infection at this time Discussion w patient/family: The assessment and plan as outlined above was discussed with the patient and/or family members who expressed understanding and agreement. All questions were answered. Thank you for involving us in the care of your patient. Please call with any questions. History of Present Illness Consult date: 06/18/17 Requesting physician: Nanci Chung Consult reason: chest pain, EKG changes Chief complaint: chest pain, fever History of present illness: Mr. Roman is a 62 year old male with PMH of CAD (2014: mild in major vessels, severe in minor vessels), paroxysmal A. fib (on xarelto), HTN, adrenal mass, and anxiety/PTSD, admitted for chest pain. He reports 7 day history of fevers with onset of diaphoresis yesterday. Presented to [place] and considered to have UTI and dehydration, then began having N/V and abdominal pain. After his vomiting he began to develop non-radiating central chest pain/tightness. He denies exertional pain, dyspnea, orthopnea, headaches, blurred vision, or palpitations. His pain did not respond to sl nitro, but decreased after nitro drip. He still reports mild chest discomfort and abdominal pain. He reports that prior to this he was active around the house without having symptoms. Of note he reports that is to follow-up with endocrinology for his adrenal mass in a couple months. Prior Cardiac Imaging: - [address] [facility]: mild CAD major vessels, severe CAD in minor vessels not amendable to stenting - 2015 TTE: LVEF 65%, normal LV, indeterminant diastolic dysfunction, normal RV , no pulm HTN or valve disease - reports he had a stress about 2 years ago without concerning findings Past Med Surg Social Fam HX - Past Medical History Medical history: coronary artery disease, hypertension, myocardial infarction, other Psychiatric history: anxiety, depression, PTSD - Social History Smoking Status: Never smoker Smokeless Tobacco Status: No Alcohol use: occasionally Drug use: none - Family History Father History Unknown: Yes Adopted: No Hx Family Cardiac Disorders: Yes (ANGINA.) Mother History Unknown: Yes Adopted: No Living Status: Hx Family Neurologic Disorders: Yes (ALZHIEMERS) Medications and Allergies Allopurinol [Zyloprim 300 MG] 300 mg PO DAILY 07/14/15 [History] Aspirin Enteric Coated [Aspirin EC] 81 mg PO DAILY 07/14/15 [History] Atorvastatin [Lipitor] 20 mg PO DAILY 07/14/15 [History] BuPROPion SR (12 HR) [Wellbutrin SR] 150 mg PO DAILY 07/14/15 [History] Cetirizine HCl [Zyrtec] 10 mg PO HS 07/14/15 [History] Cholecalciferol (D-3) [Vitamin D] 2,000 unit PO DAILY 07/14/15 [History] Cyanocobalamin (B-12) [Vitamin B12] 1,000 mcg PO DAILY 07/14/15 [History] Omeprazole [PriLOSEC] 20 mg PO DAILY 07/14/15 [History] Spironolactone [Aldactone] 25 mg PO BID 07/14/15 [History] Tizanidine HCl 4 mg PO HS 07/14/15 [History] Rivaroxaban [Xarelto] 20 mg PO 1700 #30 tablet 07/16/15 [Rx] Ascorbic Acid [C-500] 500 mg PO DAILY 06/18/17 [History] Diltiazem HCl [Diltiazem 24Hr Cd] 240 mg PO DAILY 06/18/17 [History] Ferrous Sulfate [Iron] 325 mg PO DAILY 06/18/17 [History] Labetalol [Trandate] 100 mg PO BID 06/18/17 [History] Losartan [Cozaar] 25 mg PO DAILY 06/18/17 [History] Ismay-3/Dha/Epa/Fish Oil [Fish Oil 1,000 mg Softgel] 1 cap PO DAILY 06/18/17 [ History] Potassium Chloride [K-Tab ER] 10 meq PO DAILY 06/18/17 [History] Sertraline [Zoloft] 200 mg PO DAILY 06/18/17 [History] 3 Allergy/AdvReac Type Severity Reaction Status Date / Time No Known Allergies Allergy Verified 07/14/15 14:01 All Systems Review: The remainder of the systems were reviewed and are negative Physical Examination Vital Signs, Last 4 Hours Pulse Resp BP Pulse Ox 06/18/17 09:53 89 16 166/103 90 06/18/17 07:06 157/104 06/18/17 06:41 161/112 06/18/17 06:16 150/108 General: Conversant, No Apparent Distress HEENT: Atraumatic, Normocephaly, Mucus Membranes Moist Neck: No JVD, Normal carotid pulses Cardiac: Reg Rate and Rhythm, Normal S1 and S2, No Murmur Lungs: Normal Breath Sounds, No Wheeze, Rales, Rhonchi Neuro: Alert and responsive, No focal deficits noted Abdomen: Soft, Other (Diffuse tenderness - worse in epigastrum) Skin: No rashes noted on visualized skin Musculoskeletal: No Chest Wall Tenderness Extremities: No Clubbing, No Cyanosis, No Edema, Normal Pulses Results 06/18/17 06:37 06/18/17 06:37 Lab Results 06/18/17 06/18/17 06/18/17 06:37 06:37 06:37 WBC 15.3 H Hgb 14.3 Hct 41.4 Plt Count 220 Sodium 137 Potassium 3.7 Chloride 108 H Carbon Dioxide 18 L BUN 14 Creatinine 0.85 Glucose 187 H Calcium 9.7 Magnesium 1.7 Troponin I < 0.03 - EKG Interpretation EKG results cardiology: personally reviewed (#1: sinus tachycardia, mild ST depressions in V4-5 #2: sinus arrhythmia with improvement in ST depression) Consult Discharge Plan - Plan [facility]errals: [facility] [Primary Care Provider] - <Reese Rosales - Last Filed: 06/18/17 17:30> Date of Encounter: 06/18/17 - Attending Attestation I examined this patient and my medical decision-making was reviewed with the Resident Physician. I agree with the documented findings, disposition and treatment plan as described except to the extent set forth below. Atypical chest pain, doubt ACS. Assessment and Plan Discussion w patient/family: The assessment and plan as outlined above was discussed with the patient and/or family members who expressed understanding and agreement. All questions were answered. Thank you for involving us in the care of your patient. Please call with any questions. History of Present Illness History of present illness: Mr. Roman is a 62 year old male All Systems Review: The remainder of the systems were reviewed and are negative Physical Examination Vital Signs, Last 4 Hours Temp Pulse Resp BP Pulse Ox 06/18/17 15:40 98.6 F 80 15 135/62 97 06/18/17 14:03 172/100 Results 06/18/17 06:37 06/18/17 06:37 Lab Results 06/18/17 06/18/17 06/18/17 06:37 06:37 06:37 WBC 15.3 H Hgb 14.3 Hct 41.4 Plt Count 220 Sodium 137 Potassium 3.7 Chloride 108 H Carbon Dioxide 18 L BUN 14 Creatinine 0.85 Glucose 187 H Calcium 9.7 Magnesium 1.7 Troponin I < 0.03 06/18/17 13:02 WBC Hgb Hct Plt Count Sodium Potassium Chloride Carbon Dioxide BUN Creatinine Glucose Calcium Magnesium Troponin I < 0.03
[2017-06-18] MEDS: Isosorbide MONOnitrate (24 HR) 30 MG TAB.ER.24H PO SCH (12:17)
[2017-06-18] MEDS ORDERED: Gadolinium Contrast Agent (WT Based) IV PRN (15:37)
[2017-06-18] MEDS: hydrALAZINE 25 MG TABLET PO SCH (16:35)
[2017-06-18] MEDS ORDERED: *HR* Rivaroxaban 10 MG TABLET PO SCH (17:00)
--- NOTE | 2017-06-18 19:23 | Electrocardiograph Report ---
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
--- NOTE | 2017-06-18 19:23 | Electrocardiograph Report ---
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
[2017-06-18] MEDS ORDERED: Mirtazapine 15 MG TABLET PO SCH (21:00)
[2017-06-19] MEDS: hydrALAZINE 25 MG TABLET PO SCH ×3 (00:14→11:22)
[2017-06-19] MEDS: Piperacillin/Tazobactam 3.375 GM in 0.9 % Sodium Chloride Mini Bag 100 ML IVPB SCH ×2 (00:14→09:01)
[2017-06-19 03:50] LABS: Basophils % 0.3 %; Eosinophils # 0.2 K/mcL (0.0-0.6); Eosinophils % 1.3 %; Hematocrit 41.3 % (37.5-50.1); Immature Granulocytes % 0.5 % (0-4); Lymphocytes # 2.7 K/mcL (0.6-4.6); Lymphocytes % 19.3 %; Mean Corpuscular HGB Conc 33.9 g/dL (31.6-35.5); Mean Corpuscular Hemoglobin 30.5 pg (28.0-33.3); Mean Platelet Volume 11.1 fL (9.4-12.4); Monocytes # 1.5 K/mcL (0.0-1.3); Monocytes % 10.2 %; Neutrophils # 9.7 K/mcL (1.6-8.9); Platelet Count 202 K/mcL (140-400); Red Blood Count 4.59 M/mcL (4.19-5.50); Red Cell Distribution Width 20.8 % (11.5-14.5); Segmented Neutrophils % 68.4 %
[2017-06-19 04:08] LABS: Alanine Aminotransferase 18 Units/L (7-52); Albumin 3.9 g/dL (3.5-5.7); Albumin/Globulin Ratio 1.6 (1.1-2.2); Alkaline Phosphatase 59 Units/L (34-104); Aspartate Amino Transferase 19 Units/L (13-39); BUN/Creatinine Ratio 17 (6-26); Bilirubin,Total 0.5 mg/dL (0.3-1.0); Blood Urea Nitrogen 13 mg/dL (8-23); Calcium 9.2 mg/dL (8.6-10.3); Carbon Dioxide 20 mEq/L (23-29); Chloride 112 mEq/L (98-107); Globulin 2.5 g/dL (2.4-3.5); Glucose 114 mg/dL (70-105); Osmolality,Calculated 289 (280-300); Potassium 3.6 mEq/L (3.5-5.1); Sodium 139 mEq/L (136-145); Total Protein 6.4 g/dL (6.4-8.9); eGFR For African Americans > 60 (> 60); eGFR For Non-African Americans > 60 (> 60)
--- NOTE | 2017-06-19 07:47 | Event Note ---
Date of Encounter: 06/19/17 Time of Encounter: 07:46 - Cardiology Event Note TTE with LVEF preserved, no segmental wall motion abnormalities. Per previous cardiac note, cardiology will sign off and will follow in outpatient setting. Follow up set.
--- NOTE | 2017-06-19 08:14 | Discharge Summary ---
Orders not resulted at time of discharge: Pending orders 06/18/17 06:00 EKG [ECG 12 lead ECG] [ECG] AM 0600 06/18/17 06:37 Culture,Blood [BC] Stat 06/18/17 13:02 Vitamin B1 (Thiamine) Whole Bl Routine 06/18/17 15:13 Metanephrine,Ur Random or 24hr Routine 06/20/17 04:00 CBC [Complete Blood Count] [HEME] AM 0400 C[place]] [place] 04006/21/17 04:00 CBC [Complete Blood Count] [HEME] AM 0400 CMP [Comprehensive Metabolic Panel] AM 04006/22/17 04:00 CBC [Complete Blood Count] [HEME] AM 0400 CMP [Comprehensive Metabolic Panel] AM 04006/23/17 04:00 CBC [Complete Blood Count] [HEME] AM 0400 CMP [Comprehensive Metabolic Panel] AM 0400 06/24/17 04:00 CBC [Complete Blood Count] [HEME] AM 0400 CMP [Comprehensive Metabolic Panel] AM 0400 Date of Encounter: 06/19/17 Time of Encounter: 08:08 - Discharge Diagnosis (1) Chest pain Priority: Primary Status: Acute Qualifiers: Chest pain type: unspecified Qualified Code(s): R07.9 - Chest pain, unspecified (2) Atrial fibrillation Priority: Secondary Status: Acute Assessment and Plan: Patient is currently mildly tachy but is in normal rate and rhythm Right now sinus rhythm. - continue home Cardizem and metoprolol XL for rate control - continue xarelot for anticoagulation Qualifiers: Atrial fibrillation type: paroxysmal Qualified Code(s): I48.0 - Paroxysmal atrial fibrillation (3) DVT prophylaxis Priority: Secondary Status: Acute (4) Hypertension Priority: Primary Status: Acute Assessment and Plan: Accelerated hypertension Comments: Accelerated hypertension Qualifiers: Hypertension type: essential hypertension Qualified Code(s): I10 - Essential (primary) hypertension (5) SIRS (systemic inflammatory response syndrome) Priority: Secondary Status: Acute Assessment and Plan: Possibly related to UTI (6) Nausea & vomiting Priority: Secondary Status: Acute Qualifiers: Vomiting type: unspecified Vomiting Intractability: unspecified Qualified Code(s): R11.2 - Nausea with vomiting, unspecified (7) Adrenal nodule Priority: Secondary Status: Acute Assessment and Plan: Ruled out by MRI (8) Alcohol use Priority: Secondary Status: Acute Assessment and Plan: No evidence of withdrawal, Librium was discontinued Hospital course: Mr. Roman is a 62 year old male with PMHx of HTN, previous determined NSTEMI, Patient had chest pain with EKG changes per ER physician. ST depression in V5- V6, which wer not evident in the next EG. trops negative. Last [facility] 12/18/13 - an 80% stenosis in the mid PDA, and a 90% stenosis in the second obtuse marginal branch. Nitroglycerin was started by the ER. New echocardiogram showed an ejection fraction of 65% with mild ventricular diastolic dysfunction, no wall motion abnormalities. The patient was evaluated by the cardiology service, no further testing was recommended, he was started on Imdur. The patient's white blood cell count was 16.1 0 running low-grade fever 100.4, was diagnosed a couple of days ago with a UTI at the [facility], his chest x-ray was unremarkable, his urinalysis was negative for infection in this facility. Upon admission, he was started on Zosyn which will be discontinued. His blood pressure was in the 190s and was properly controlled after being started on hydralazine. The patient mentioned that he was diagnosed with an adrenal nodule in the past few weeks for which an MRI of the abdomen was performed and did not show any abnormality. Metanephrines were cancelled. The patient is feeling much better, was given the option to stay until the metanephrine tests were completed but prefers to go home at this time. Risks were explained. Patient was very anxious upon admission, tremors were seen which are likely essential tremors. Blood cell count has come down to 14.2. TSH was normal - Time Spent with Patient Total time spent providing and/or coordinating discharge services: Greater than 30 minutes (40 min) - Discharge Medications Prescriptions: Cefdinir [Omnicef] 300 mg PO BID #6 capsule hydrALAZINE [HydrALAZINE] 25 mg PO TID #90 tablet Isosorbide MONOnitrate (24 HR) [Imdur] 30 mg PO DAILY #30 tab.er.24h Home Medications: Allopurinol [Zyloprim 300 MG] 300 mg PO DAILY 07/14/15 [History] Aspirin Enteric Coated [Aspirin EC] 81 mg PO DAILY 07/14/15 [History] Atorvastatin [Lipitor] 20 mg PO DAILY 07/14/15 [History] BuPROPion SR (12 HR) [Wellbutrin SR] 150 mg PO DAILY 07/14/15 [History] Cetirizine HCl [Zyrtec] 10 mg PO HS 07/14/15 [History] Cholecalciferol (D-3) [Vitamin D] 2,000 unit PO DAILY 07/14/15 [History] Cyanocobalamin (B-12) [Vitamin B12] 1,000 mcg PO DAILY 07/14/15 [History] Omeprazole [PriLOSEC] 20 mg PO DAILY 07/14/15 [History] Spironolactone [Aldactone] 25 mg PO BID 07/14/15 [History] Tizanidine HCl 4 mg PO HS 07/14/15 [History] Rivaroxaban [Xarelto] 20 mg PO 1700 #30 tablet 07/16/15 [Rx] Ascorbic Acid [C-500] 500 mg PO DAILY 06/18/17 [History] Diltiazem HCl [Diltiazem 24Hr Cd] 240 mg PO DAILY 06/18/17 [History] Ferrous Sulfate [Iron] 325 mg PO DAILY 06/18/17 [History] Labetalol [Trandate] 100 mg PO BID 06/18/17 [History] Losartan [Cozaar] 25 mg PO DAILY 06/18/17 [History] [place]-3/Dha/Epa/Fish Oil [Fish Oil 1,000 mg Softgel] 1 cap PO DAILY 06/18/17 [ History] Potassium Chloride [K-Tab ER] 10 meq PO DAILY 06/18/17 [History] Sertraline [Zoloft] 200 mg PO DAILY 06/18/17 [History] Cefdinir [Omnicef] 300 mg PO BID #6 capsule 06/19/17 [Rx] Isosorbide MONOnitrate (24 HR) [Imdur] 30 mg PO DAILY #30 tab.er.24h 06/19/17 [ Rx] hydrALAZINE [HydrALAZINE] 25 mg PO TID #90 tablet 06/19/17 [Rx] Allergies/Adverse Reactions: 3 Allergy/AdvReac Type Severity Reaction Status Date / Time No Known Allergies Allergy Verified 07/14/15 14:01 Date of admission: 06/18/17 03:46 [facility] care physician: [facility] Consults: 06/18/17 03:53 Consult to Cardiology [CONS] Routine Comment: Consulting Provider: Cardiology Carmella Reason for Consult: Chest pain with EKG shows V3-V5 ST depression, CP respond to NTG drip Call Completed: No - Constitutional Vitals: Temp Pulse Resp BP Pulse Ox 98.5 F 68 15 126/74 96 06/19/17 07:25 06/19/17 07:25 06/19/17 07:25 06/19/17 07:25 06/19/17 07:25 General appearance: Present: mild distress, A&O X 3, pleasant, answers questions appropriately Exam: Essential tremors - Head Head exam: Present: atraumatic, normocephalic - Eye Eye exam: Present: PERRL, conjuntiva pink, sclera anicteric Pupils: Present: PERRL - Neck Neck exam general surgery: Present: supple, trachea midline. Absent: lymphadenopathy - Respiratory Respiratory exam: Present: CTAB. Absent: accessory muscle use, rales, rhonchi, wheezes - Cardiovascular Cardiovascular exam: Present: RRR, +S1, +S2. Absent: diastolic murmur, gallop, rubs, systolic murmur - GI/Abdominal GI/Abdominal exam: Present: normal bowel sounds, soft, no peritoneal signs. Absent: distended, tenderness - Extremities Exam Extremities exam: Present: warm, radial pulses palpable and symmetrical. Absent : calf tenderness, cyanotic, pedal edema - Neurological Exam Neurological exam: Present: CN II-XII intact, oriented X3, no focal deficits. Absent: pronater drift, facial droop, speech deficit - Skin Skin exam: Present: dry, intact - Patient Status Disposition: Home, Self-Care Condition: Fair Overall status at discharge: patient is back to baseline - Discharge Instructions Instructions: Chest Pain (DC), Chronic Hypertension (DC) Follow Up With: [facility] [Primary Care Provider] - Additional Instructions: Follow-up with primary care physician within the next 7 days. Continue Imdur, start hydralazine. Complete 3 days more of cefdinir - Diet and Activity Activity: increase activity as tolerated Diet: low fat, low cholesterol
[2017-06-19] MEDS: Aspirin Enteric Coated 81 MG Tablet PO SCH (09:01)
[2017-06-19] MEDS: Isosorbide MONOnitrate (24 HR) 30 MG TAB.ER.24H PO SCH (09:01)
[2017-06-19] MEDS: Diltiazem CD (24hr) 120 MG CAPSULE PO SCH (09:01)
[2017-06-19] MEDS: BuPROPion SR (12 HR) 150 MG TABLET PO SCH (09:01)
[2017-06-19] MEDS: Ondansetron 4 MG/2 ML VIAL IVP PRN (11:34)
[2017-06-19 11:39] VITALS: BP 148/82
== END 2017-06-19 12:31 | disposition home or self-care (01) | DRG 313 ==
LOC: 2SOUTHHOLD 01:16 → EMEROO 01:16 → 2SOUTHHOLD 03:49 → 2ANU 15:20
PROVIDERS: ADMIT Internal Medicine; ATTEND Internal Medicine

== ENCOUNTER 2018-03-29 16:53 | Inpatient (IN) ==
[2018-03-29] MEDS ORDERED: 0.9 % Sodium Chloride 1,000 ML IVC ONE (16:59)
[2018-03-29] MEDS ORDERED: *HR* LORazepam 2 MG/ML VIAL IVP ONE (17:00)
--- NOTE | 2018-03-29 17:06 | Emergency Department Note ---
Disposition Clinical Impression: Neutrophilic leukocytosis Disposition: Admitted As Inpatient Condition: Good [facility]errals: [facility],PC[facility] [Primary Care Provider] - General Adult HPI - General Stated complaint: Complications from surgery Time Seen by Provider: 03/29/18 16:59 Nursing Notes Reviewed: Yes Vital Signs Reviewed: Yes - Related Data Home Medications Medication Instructions Recorded Confirmed RX: Aspirin Enteric Coated 81 mg PO DAILY 07/14/15 03/07/18 [Aspirin EC] RX: Omeprazole [PriLOSEC] 20 mg PO BID 07/14/15 03/07/18 RX: Ascorbic Acid [C-500] 500 mg PO DAILY 06/18/17 03/07/18 RX: Diltiazem HCl [Diltiazem 24Hr 240 mg PO DAILY 06/18/17 03/07/18 Cd] RX: Ferrous Sulfate [Iron] 325 mg PO DAILY 06/18/17 03/07/18 RX: Labetalol [Trandate] 100 mg PO BID 06/18/17 03/07/18 RX: Losartan [Cozaar] 50 mg PO DAILY 06/18/17 03/07/18 RX: [place]-3/Dha/Epa/Fish Oil [Fish 1 cap PO DAILY 06/18/17 03/07/18 Oil 1,000 mg Softgel] RX: Potassium Chloride [K-Tab ER] 10 meq PO BID 06/18/17 03/07/18 RX: Sertraline [Zoloft] 200 mg PO DAILY 06/18/17 03/07/18 RX: Buspirone HCl [Buspar] 10 mg PO BID 03/07/18 03/07/18 RX: Cholecalciferol (D-3) [Vitamin 1,000 unit PO DAILY 03/07/18 03/07/18 D] RX: Cyanocobalamin (Vitamin B-12) 1,000 mcg PO DAILY 03/07/18 03/07/18 [Vitamin B-12] RX: Multivit-Min/Folic/Vit K/Lycop 1 each PO 03/07/18 [Men's Multivitamin Caplet] RX: cloNIDine HCl [CloNIDine HCl] 0.1 mg PO HS 03/07/18 03/07/18 Previous Rx's Medication Instructions Recorded RX: Rivaroxaban [Xarelto] 20 mg PO 1700 #30 tablet 07/16/15 RX: Isosorbide MONOnitrate (24 HR) 30 mg PO DAILY #30 tab.er.24h 06/19/17 [Imdur] Docusate [Colace] 100 mg PO BID #30 capsule 03/07/18 Allergies Allergy/AdvReac Type Severity Reaction Status Date / Time No Known Allergies Allergy Verified 03/07/18 11:13 Past Medical History - Past Medical History Medical history: Reports: atrial fibrillation, coronary artery disease, hy perlipidemia, hypertension, myocardial infarction, other Psychiatric history: Reports: anxiety, depression, PTSD - Social History Smoking Status: Unknown if ever smoked Smokeless Tobacco Status: No Alcohol use: Reports: occasionally Drug use: Reports: none Course Vital Signs Temperature 99.3 F 03/29/18 17:04 Pulse Rate 75 03/29/18 17:04 Respiratory Rate 20 03/29/18 17:04 Blood Pressure 160/99 03/29/18 17:04 O2 Sat by Pulse Oximetry 96 03/29/18 17:04 Temperature 99.3 F 03/29/18 17:04 Pulse Rate 75 03/29/18 17:04 Respiratory Rate 20 03/29/18 17:04 Blood Pressure 160/99 03/29/18 17:04 O2 Sat by Pulse Oximetry 96 03/29/18 17:04 Oxygen Delivery Oxygen Delivery Room Air Medical Decision Making - [facility] Narrative Medical decision making narrative: 1800 hrs.: Lactate back and negative. Spoke with surgery and they wanted go ahead and add on LFTs admitted to hospitalist with him consulting. We will go ahead and speak with hospitalist and admit. Patient's agreement this plan. Impression is abdominal fluid collection status post cholecystectomy. Rule out abscess. - Lab Data Lab Results 03/29/18 03/29/18 Range/Units 17:18 17:18 Lactic Acid 0.8 (0.5-2.2) mmol/L Total Bilirubin 0.8 (0.3-1.0) mg/dL Direct Bilirubin 0.2 (0.0-0.2) mg/dL Indirect Bilirubin 0.6 (0.0-1.2) mg/dL AST 16 (13-39) Units/L ALT 17 (7-52) Units/L Alkaline Phosphatase 69 (34-104) Units/L Serum Total Protein 6.9 (6.4-8.9) g/dL Albumin 4.4 (3.5-5.7) g/dL Globulin 2.5 (2.4-3.5) g/dL Albumin/Globulin Ratio 1.8 (1.1-2.2) Attestation Statement - Attestation Attestation: This documentation is done with the assistance of Dragon dictation. Despite efforts made to ensure accuracy, there may be inaccuracies in manufacturing quality inspector or spelling and typographical errors. I examined this patient and my medical decision-making was reviewed with the Resident Physician. I agree with the documented findings, disposition and treatment plan as described except to the extent set forth below. Patient seen on arrival by Dr. North and myself agree with her evaluation and management plan, suprascapular the patient's stay. Patient was transferred over from [facility]. He had his gallbladder removed here March 07 his head follow- up with Dr. Goodson a surgeon things look well however over the last week he has not been feeling well went to the [place] urgent care today they did lab work is a 19,000 white count it is scan which showed a possible mass by the color fluid collection. Morning to rule out abscess. He is comfortable does not want anything to eat he said he does get chills they will negative for some fluids and Ativan and then have them uploaded the CT into our system and then speak with surgery for evaluation. He is in agreement this plan. He said he does not need anything for pain at this time.
--- NOTE | 2018-03-29 17:07 | Emergency Department Note ---
Disposition Clinical Impression: Neutrophilic leukocytosis Disposition: Admitted As Inpatient Condition: Good [facility]errals: [facility] [Primary Care Provider] - Time of Disposition: 18:13 General Adult HPI - General Stated complaint: Complications from surgery Time Seen by Provider: 03/29/18 16:59 Source: patient, EMS Mode of arrival: EMS Limitations: no limitations Nursing Notes Reviewed: Yes Vital Signs Reviewed: Yes - History of Present Illness HPI Narrative: Patient is a 63-year-old gentleman who had his gallbladder removed on March [address] [place] [address] Goodson in the postoperative period was uneventful. Patient began to have fevers, chills, general malaise starting March 25. He was evaluated at the [facility] urgent care today with a CAT scan, urinalysis, EKG, blood work and was found have a white count in excess of 19,000 so was sent to again at to be evaluated. On exam patient is complaining of chills, shortness of breath on exertion and at rest, and some nausea for which she got Zofran at the [facility]. Patient is denying headache, sore throat, coughing, chest pain, abdominal pain, vomiting, diarrhea, constipation, numbness and tingling, dysuria, frequency. - Related Data Home Medications Medication Instructions Recorded Confirmed Aspirin Enteric Coated [Aspirin EC] 81 mg PO DAILY 07/14/15 03/07/18 Omeprazole [PriLOSEC] 20 mg PO BID 07/14/15 03/07/18 Ascorbic Acid [C-500] 500 mg PO DAILY 06/18/17 03/07/18 Diltiazem HCl [Diltiazem 24Hr Cd] 240 mg PO DAILY 06/18/17 03/07/18 Ferrous Sulfate [Iron] 325 mg PO DAILY 06/18/17 03/07/18 Labetalol [Trandate] 100 mg PO BID 06/18/17 03/07/18 Losartan [Cozaar] 50 mg PO DAILY 06/18/17 03/07/18 [place]-3/Dha/Epa/Fish Oil [Fish Oil 1 cap PO DAILY 06/18/17 03/07/18 1,000 mg Softgel] Potassium Chloride [K-Tab ER] 10 meq PO BID 06/18/17 03/07/18 Sertraline [Zoloft] 200 mg PO DAILY 06/18/17 03/07/18 Buspirone HCl [Buspar] 10 mg PO BID 03/07/18 03/07/18 Cholecalciferol (D-3) [Vitamin D] 1,000 unit PO DAILY 03/07/18 03/07/18 Cyanocobalamin (Vitamin B-12) 1,000 mcg PO DAILY 03/07/18 03/07/18 [Vitamin B-12] Multivit-Min/Folic/Vit K/Lycop 1 each PO 03/07/18 [Men's Multivitamin Caplet] cloNIDine HCl [CloNIDine HCl] 0.1 mg PO HS 03/07/18 03/07/18 Previous Rx's Medication Instructions Recorded Rivaroxaban [Xarelto] 20 mg PO 1700 #30 tablet 07/16/15 Isosorbide MONOnitrate (24 HR) 30 mg PO DAILY #30 tab.er.24h 06/19/17 [Imdur] Docusate [Colace] 100 mg PO BID #30 capsule 03/07/18 Allergies Allergy/AdvReac Type Severity Reaction Status Date / Time No Known Allergies Allergy Verified 03/07/18 11:13 All systems ED: reviewed and negative except as stated. Review of Systems: As Per HPI Constitutional: Reports: chills, weakness. Denies: fever ENT ED: Denies: throat pain, congestion Cardiovascular: Reports: dyspnea on exertion. Denies: chest pain Respiratory: Reports: dyspnea. Denies: cough Gastrointestinal: Reports: nausea. Denies: abdominal pain, vomiting, diarrhea, constipation Genitourinary: Denies: urgency, dysuria, frequency Musculoskeletal: Denies: back pain Neurological: Reports: weakness. Denies: headache, numbness Psychiatric: Reports: anxiety Past Medical History - Past Medical History Medical history: Reports: atrial fibrillation, coronary artery disease, hyperlipidemia, hypertension, myocardial infarction, other Psychiatric history: Reports: anxiety, depression, PTSD - Social History Smoking Status: Unknown if ever smoked Smokeless Tobacco Status: No Alcohol use: Reports: occasionally Drug use: Reports: none Physical Exam Pt somewhat tremulous on exam in [place] [facility] which is not consistent. - General Limitations: no limitations General appearance: alert, in no apparent distress - Head Head exam: atraumatic, normocephalic - Eye Eye exam: Present: normal appearance, PERRL, EOMI - ENT ENT exam: normal exam, normal oropharynx - Neck Neck exam: Present: normal inspection, full ROM - Chest Chest inspection: Present: normal inspection, symmetric chest wall rise. Absent: tenderness - Respiratory Respiratory exam: Present: normal lung sounds bilaterally. Absent: respiratory distress, wheezes - Cardiovascular Cardiovascular exam: Present: regular rate, normal rhythm - Abdominal Exam Abdominal exam: Present: soft, Non-Tender. Absent: tenderness, distention, guarding, rebound - Extremities Exam Extremities exam: Present: normal inspection, full ROM - Back Exam Back exam: Present: normal inspection, full ROM - Neurological Exam Neurological exam: Present: alert, oriented X3 - Psychiatric Psychiatric exam: Present: normal affect, normal mood - Skin Skin exam: Present: warm, dry, intact Course Course Narrative: Pt will likely need to be admitted for IV Abx and further workup of post-op complication. Will add lactic acid to workup performed by [facility] [place] [facility] fiction and nonfiction author. - Reevaluation(s) Reevaluation #1: Spoke with surgeon fiction and nonfiction author, Dr. Dawson, who said they would see the patient and to add LFTs to his laboratory panel workup. Time: 18:05 Vital Signs Temperature 99.3 F 03/29/18 17:04 Pulse Rate 75 03/29/18 17:04 Respiratory Rate 20 03/29/18 17:04 Blood Pressure 160/99 03/29/18 17:04 O2 Sat by Pulse Oximetry 96 03/29/18 17:04 Temperature 99.3 F 03/29/18 17:04 Pulse Rate 75 03/29/18 17:04 Respiratory Rate 20 03/29/18 17:04 Blood Pressure 160/99 03/29/18 17:04 O2 Sat by Pulse Oximetry 96 03/29/18 17:04 Oxygen Delivery Oxygen Delivery Room Air Medical Decision Making - [facility] Narrative Medical decision making narrative: Pt appears ill but not toxic, workup at [facility] was concerning for leukocystosis with neutrophillia and CT of Abd showed a 10x8mm collection of fluid in the GB fossa. Surgery was contacted and agreed to see the patient. Hospitalist service was contacted and Dr. Pham accepted the patient. Appropriate antibiotics were started in the department. Pt remained stable during his time in the emergency department. Pt verbalized understanding and agreement with the plan. Pt was given an opportunity to ask questions and all of his concerns were addressed. - Medical Records Medical records reviewed: Yes I reviewed the patient's medical records. - Lab Data Lab results reviewed: Yes I reviewed the patient's lab results. Lab Results 03/29/18 Range/Units 17:18 Lactic Acid 0.8 (0.5-2.2) mmol/L - Radiology Data Radiology results reviewed: Yes I reviewed the patient's radiology results.
[2018-03-29] MEDS ORDERED: Piperacillin/Tazobactam 3.375 GM in 0.9 % Sodium Chloride Mini Bag 100 ML IVP ONE (18:10)
[2018-03-29 18:21] LABS: Alanine Aminotransferase 17 Units/L (7-52); Albumin 4.4 g/dL (3.5-5.7); Albumin/Globulin Ratio 1.8 (1.1-2.2); Alkaline Phosphatase 69 Units/L (34-104); Aspartate Amino Transferase 16 Units/L (13-39); Bilirubin,Direct 0.2 mg/dL (0.0-0.2); Bilirubin,Indirect 0.6 mg/dL (0.0-1.2); Bilirubin,Total 0.8 mg/dL (0.3-1.0); Globulin 2.5 g/dL (2.4-3.5); Total Protein 6.9 g/dL (6.4-8.9)
[2018-03-29] MEDS ORDERED: Naloxone 0.4 MG/ML INJ IVP PRN (18:52)
[2018-03-29] MEDS ORDERED: *HR* FentaNYL (PF) 100 MCG/2 ML VIAL IVP PRN (19:46)
[2018-03-29] MEDS ORDERED: traMADol 50 MG TABLET PO PRN (19:47)
[2018-03-29 19:50] LABS: Basophils # 0.1 K/mcL (0.0-0.2); Basophils % 0.3 %; Eosinophils % 0.3 %; Hematocrit 43.7 % (37.5-50.1); Hemoglobin 15.9 g/dL (12.9-16.9); Immature Granulocytes % 0.5 % (0-4); Lymphocytes # 2.4 K/mcL (0.6-4.6); Lymphocytes % 16.1 %; Mean Corpuscular HGB Conc 36.4 g/dL (31.6-35.5); Mean Corpuscular Hemoglobin 32.3 pg (28.0-33.3); Mean Corpuscular Volume 88.6 fL (83.0-100.0); Monocytes % 6.8 %; Neutrophils # 11.1 K/mcL (1.6-8.9); Platelet Count 209 K/mcL (140-400); Red Blood Count 4.93 M/mcL (4.19-5.50); Red Cell Distribution Width 13.2 % (11.5-14.5)
[2018-03-29] MEDS ORDERED: Ondansetron 4 MG/2 ML VIAL IVP PRN (19:51)
--- NOTE | 2018-03-29 19:56 | Internal Med History&Physical ---
Date of Encounter: 03/29/18 Time of Encounter: 19:30 Internal Medicine - H&P: HPI Chief complaint: Abdominal pain with fevers and chills s/p cholecystectomy History of present illness: Mr. Roman is a 63 year old male with pmh of Afib, CAD, biliary sludge s/p cholecystectomy on March 07 as an outpatient procedure. Had his last follow up with Dr Durham on March 24 which was uneventful. Beginning last week wednesday, patient says he woke up with nausea and sweating with vomiting. He began to have diffuse abominal pain non radiating. He admits to fevers and chills. Pain continued all through the weekend. He felt very weak and went to [facility] where he had a CBC done and a CT scan. His WBC was elevated at [address] scan showed fluid around the gall bladder. He was therefore sent to [facility] for further evaluation. Surgery has been consulted and he is being admitted for further evaluation Past Med Surg Social Fam HX - Past Medical History Medical history: atrial fibrillation, coronary artery disease, hyperlipidemia, hypertension, myocardial infarction, other Psychiatric history: anxiety, depression, PTSD - Past Surgical History Additional surgical history: cardiac cath. EGD - Social History Smoking Status: Unknown if ever smoked Smokeless Tobacco Status: No Alcohol use: occasionally Drug use: none - Family History Father Adopted: No Hx Family Cardiac Disorders: Yes (ANGINA.) Mother Adopted: No Living Status: Hx Family Neurologic Disorders: Yes (ALZHIROSIERS) Internal Medicine - H&P: Meds Aspirin Enteric Coated [Aspirin EC] 81 mg PO DAILY 07/14/15 [History] Omeprazole [PriLOSEC] 20 mg PO BID 07/14/15 [History] Rivaroxaban [Xarelto] 20 mg PO 1700 #30 tablet 07/16/15 [Rx] Ascorbic Acid [C-500] 500 mg PO DAILY 06/18/17 [History] Diltiazem HCl [Diltiazem 24Hr Cd] 240 mg PO DAILY 06/18/17 [History] Ferrous Sulfate [Iron] 325 mg PO DAILY 06/18/17 [History] Labetalol [Trandate] 100 mg PO BID 06/18/17 [History] Losartan [Cozaar] 50 mg PO DAILY 06/18/17 [History] [place]-3/Dha/Epa/Fish Oil [Fish Oil 1,000 mg Softgel] 1 cap PO DAILY 06/18/17 [History] Potassium Chloride [K-Tab ER] 10 meq PO BID 06/18/17 [History] Sertraline [Zoloft] 200 mg PO DAILY 06/18/17 [History] Isosorbide MONOnitrate (24 HR) [Imdur] 30 mg PO DAILY #30 tab.er.24h 06/19/17 [Rx] Buspirone HCl [Buspar] 10 mg PO BID 03/07/18 [History] Cholecalciferol (D-3) [Vitamin D] 1,000 unit PO DAILY 03/07/18 [History] Cyanocobalamin (Vitamin B-12) [Vitamin B-12] 1,000 mcg PO DAILY 03/07/18 [History] Docusate [Colace] 100 mg PO BID #30 capsule 03/07/18 [Rx] Multivit-Min/Folic/Vit K/Lycop [Men's Multivitamin Caplet] 1 each PO 03/07/18 [History] cloNIDine HCl [CloNIDine HCl] 0.1 mg PO HS 03/07/18 [History] Allergy/AdvReac Type Severity Reaction Status Date / Time No Known Allergies Allergy Verified 03/07/18 11:13 All Systems PM: A 10-system review of systems was performed and is negative for pertinent findings except as documented above in the HPI. - Constitutional Constitutional: fever(s), weakness, no chills, no night sweats - EENT Eyes: no change in vision, no discharge, no pain, no photophobia Ears: no ear discharge, no ear pain, no tinnitus Nose, mouth and throat: no dysphagia, no nasal discharge, no neck pain, no sore throat - Cardiovascular Cardiovascular ROS IM: no chest pain, no diaphoresis, no dyspnea, no lightheadedness, no palpitations, no syncope - Respiratory Respiratory: no cough, no dyspnea, no wheezing, no excessive phlegm production - Gastrointestinal Gastrointestinal: abdominal pain, no diarrhea, no hematemesis, no hematochezia, no melena, no nausea, no vomiting - Musculoskeletal Musculoskeletal ROS IM: no numbness, no tingling - Integumentary Integumentary IM: no rash, no unusual bruising - Neurological Neurological ROS: no confusion, no convulsions, no focal weakness, no numbness, no tingling, no tremor(s) - Hematologic/Lymphatic Hematologic/Lymphatic: no easy bruising - Constitutional Vitals: Temp Pulse Resp BP Pulse Ox 99.3 F 75 20 160/99 96 03/29/18 17:04 03/29/18 17:04 03/29/18 17:04 03/29/18 17:04 03/29/18 17:04 Exam: NAD - Head Head exam: Present: atraumatic, normocephalic - Eye Eye exam: Present: PERRL, conjuntiva pink, sclera anicteric Pupils: Present: PERRL - Neck Neck exam general surgery: Present: supple, trachea midline. Absent: lymphadenopathy - Respiratory Respiratory exam: Present: CTAB. Absent: accessory muscle use, rales, rhonchi, wheezes - Cardiovascular Cardiovascular exam: Present: RRR, +S1, +S2. Absent: diastolic murmur, gallop, rubs, systolic murmur - GI/Abdominal GI/Abdominal exam: Present: normal bowel sounds, soft, tenderness, no peritoneal signs. Absent: distended - Extremities Exam Extremities exam: Present: warm, radial pulses palpable and symmetrical. Absent: calf tenderness, cyanotic, pedal edema - Neurological Exam Neurological exam: Present: CN II-XII intact, oriented X3, no focal deficits. Absent: pronater drift, facial droop, speech deficit - Skin Skin exam: Present: dry, intact Internal Med - H&P Results - Labs CBC & Chem 7: 03/29/18 18:18 03/29/18 17:18 Labs: Liver Function 03/29/18 Range/Units 17:18 Total Bilirubin 0.8 (0.3-1.0) mg/dL Direct Bilirubin 0.2 (0.0-0.2) mg/dL AST 16 (13-39) Units/L ALT 17 (7-52) Units/L Alkaline Phosphatase 69 (34-104) Units/L Albumin 4.4 (3.5-5.7) g/dL - Assessment and plan (1) Intraabdominal fluid collection Current Visit: Yes Status: Acute Assessment and plan: Pt presents with abdominal pain and fluid collection in the abdomen with leukocytosis s/p laparoscopic cholecystectomy by Dr Durham Will give IV fluids, pain control, start on antibiotics with zosyn. Obtain blood cultures and HIDA scan Surgery consulted and appreciate recs (2) Leukocytosis Current Visit: Yes Status: Acute Assessment and plan: Leukocytosis of 19 r/o Sepsis with fluid collection in abdomen Start on zosyn. follow up blood cultures Qualifiers: Qualified Code(s): D72.829 - Elevated white blood cell count, unspecified (3) Atrial fibrillation Current Visit: Yes Status: Acute Assessment and plan: Rate controlled. resume home meds. Hold xarelto in case of surgery Qualifiers: Atrial fibrillation type: paroxysmal Qualified Code(s): I48.0 - Paroxysmal atrial fibrillation (4) Hypertension Current Visit: Yes Status: Acute Assessment and plan: Stable. resume meds Qualifiers: Hypertension type: essential hypertension Qualified Code(s): I10 - Essential (primary) hypertension (5) CAD (coronary artery disease) Current Visit: Yes Status: Acute Assessment and plan: Continue home meds Qualifiers: Coronary Disease-Associated Artery/Lesion type: [place] artery [place] vs. transplanted heart: [place] heart Associated angina: angina presence unspecified Qualified Code(s): I25.10 - Atherosclerotic heart disease of [place] coronary artery without angina pectoris (6) DVT prophylaxis Current Visit: Yes Status: Acute Assessment and plan: Heparin sc - Time Spent With Patient Total time spent is greater than 50% in coordination of care (as documented) at patient's floor/unit and/or counseling patient:
[2018-03-29 20:05] LABS: BUN/Creatinine Ratio 31 (6-26); Blood Urea Nitrogen 26 mg/dL (8-23); Calcium 9.2 mg/dL (8.6-10.3); Carbon Dioxide 17 mEq/L (23-29); Chloride 103 mEq/L (98-107); Glucose 133 mg/dL (70-105); Osmolality,Calculated 283 (280-300); Potassium 3.6 mEq/L (3.5-5.1); Sodium 133 mEq/L (136-145); eGFR For Non-African Americans > 60 (> 60)
[2018-03-29] MEDS: 0.9 % Sodium Chloride 1,000 ML IVC SCH (20:45)
[2018-03-29] MEDS ORDERED: cloNIDine HCl 0.1 MG TABLET PO SCH (21:00)
[2018-03-30] MEDS: Piperacillin/Tazobactam 3.375 GM in 0.9 % Sodium Chloride Mini Bag 100 ML IVPB SCH ×2 (01:14→08:40)
--- NOTE | 2018-03-30 06:16 | General Surgery Consult Note ---
Date of Encounter: 03/29/18 Time of Encounter: 21:00 Assessment and Plan (1) S/P laparoscopic cholecystectomy Current Visit: Yes Status: Acute Continue IV ABX. LFTs are wnl so, doubt bile leak. However, HIDA scan is ordered to definitively rule leak out. Will follow. (2) Intraabdominal fluid collection Current Visit: Yes Status: Acute (3) Leukocytosis Current Visit: No Status: Acute Qualifiers: Leukocytosis type: unspecified Qualified Code(s): D72.829 - Elevated white blood cell count, unspecified History of Present Illness Consult date: 03/29/18 History of present illness: This 63 y/o male presents >3 weeks post-op Lap [place]. He c/o fever and chills. He denies any nausea/vomiting/ He denies abdominal pain. He reports post-op abdominal pain was minimal. He denies any changes in BM. He denies any RAMÍREZ or neck pain. He denies CP or SOB. He denies yellow color changes of his eyes or skin. Past Med Surg Social Fam HX - Past Medical History Medical history: atrial fibrillation, coronary artery disease, hyperlipidemia, hypertension, myocardial infarction, other Psychiatric history: anxiety, depression, PTSD - Past Surgical History Surgical History: cholecystectomy Additional surgical history: cardiac cath. EGD - Social History Smoking Status: Unknown if ever smoked Smokeless Tobacco Status: No Alcohol use: occasionally Drug use: none - Family History Father Adopted: No Hx Family Cardiac Disorders: Yes (ANGINA.) Mother Adopted: No Living Status: Hx Family Neurologic Disorders: Yes (ALZHIEMERS) Medications and Allergies RX: Aspirin Enteric Coated [Aspirin EC] 81 mg PO DAILY 07/14/15 [History] RX: Omeprazole [PriLOSEC] 20 mg PO BID 07/14/15 [History] RX: Rivaroxaban [Xarelto] 20 mg PO 1700 #30 tablet 07/16/15 [Rx] RX: Ascorbic Acid [C-500] 500 mg PO DAILY 06/18/17 [History] RX: Diltiazem HCl [Diltiazem 24Hr Cd] 240 mg PO DAILY 06/18/17 [History] RX: Ferrous Sulfate [Iron] 325 mg PO DAILY 06/18/17 [History] RX: Labetalol [Trandate] 50 mg PO BID 06/18/17 [History] RX: Losartan [Cozaar] 50 mg PO DAILY 06/18/17 [History] RX: [place]-3/Dha/Epa/Fish Oil [Fish Oil 1,000 mg Softgel] 1 cap PO DAILY 06/18/17 [History] RX: Potassium Chloride [K-Tab ER] 10 meq PO BID 06/18/17 [History] RX: Sertraline [Zoloft] 200 mg PO DAILY 06/18/17 [History] RX: Isosorbide MONOnitrate (24 HR) [Imdur] 30 mg PO DAILY #30 tab.er.24h 06/19/17 [Rx] Docusate [Colace] 100 mg PO BID #30 capsule 03/07/18 [Rx] RX: Buspirone HCl [Buspar] 10 mg PO BID 03/07/18 [History] RX: Cholecalciferol (D-3) [Vitamin D] 2,000 unit PO DAILY 03/07/18 [History] RX: Cyanocobalamin (Vitamin B-12) [Vitamin B-12] 1,000 mcg PO DAILY 03/07/18 [History] RX: Multivit-Min/Folic/Vit K/Lycop [Men's Multivitamin Caplet] 1 each PO 03/07 [History] RX: cloNIDine HCl [CloNIDine HCl] 0.1 mg PO HS 03/07/18 [History] Allergy/AdvReac Type Severity Reaction Status Date / Time No Known Allergies Allergy Verified 03/07/18 11:13 Review of Systems All systems PM: The remainder of the systems were reviewed and are negative - Constitutional chills, fatigue, fever(s) - EENT Nose, mouth and throat: no nasal discharge, no sinus pain, no sore throat - Cardiovascular no chest pain, no dyspnea - Respiratory no cough, no dyspnea, no wheezing - Gastrointestinal no abdominal pain, no change in bowel habits, no diarrhea, no nausea, no vomiting - Genitourinary no difficulty urinating, no urinary urgency - Musculoskeletal no back pain, no neck pain - Integumentary no jaundice - Neurological no confusion, no headache(s) - Psychiatric no anxiety, no confusion, no depression - Hematologic/Lymphatic no easy bleeding, no easy bruising General Surgery Exam Initial Vital Signs Temp Pulse Resp BP Pulse Ox 99.3 F 75 20 160/99 96 03/29/18 17:04 03/29/18 17:04 03/29/18 17:04 03/29/18 17:04 03/29/18 17:04 - General physical appearance well developed, no distress. negative: jaundice - Eyes negative: icteric - ENT normal mucosa, nasal discharge - Neck trachea midline, other (supple) - Respiratory normal respiratory effort, clear to auscultation - Cardiovascular Cardiovascular exam: Present: RRR, no murmurs/rubs/gallops - Abdomen Abdomen general surgery: Present: bowel sounds present, non tender, surgical scars (well healing). Absent: distended, guarding, rebound - Genitourinary Present: other (normal external genitalia) - Integumentary Integumentary general surgery: Present: warm and dry, other (no jaundice) - Neurologic Present: CN 2-12 grossly intact, normal sensation. Absent: confused - Psychiatric Psychiatric general surgery: Present: A&Ox3, appropriate Exam Initial Vital Signs Temp Pulse Resp BP Pulse Ox 99.3 F 75 20 160/99 96 03/29/18 17:04 03/29/18 17:04 03/29/18 17:04 03/29/18 17:04 03/29/18 17:04 Results - Labs 03/29/18 18:18 03/29/18 17:18 Abnormal lab results WBC 14.6 K/mcL (4.3-11.1) H 03/29/18 18:18 MCHC 36.4 g/dL (31.6-35.5) H 03/29/18 18:18 Neutrophils # 11.1 K/mcL (1.6-8.9) H 03/29/18 18:18 Sodium 133 mEq/L (136-145) L 03/29/18 17:18 Carbon Dioxide 17 mEq/L (23-29) L 03/29/18 17:18 BUN 26 mg/dL (8-23) H 03/29/18 17:18 BUN/Creatinine Ratio 31 (6-26) H 03/29/18 17:18 Glucose 133 mg/dL (70-105) H 03/29/18 17:18 Diabetes panel 03/29/18 Range/Units 17:18 Sodium 133 L (136-145) mEq/L Potassium 3.6 (3.5-5.1) mEq/L Chloride 103 (98-107) mEq/L Carbon Dioxide 17 L (23-29) mEq/L BUN 26 H (8-23) mg/dL Creatinine 0.83 (0.70-1.30) mg/dL Glucose 133 H (70-105) mg/dL Calcium 9.2 (8.6-10.3) mg/dL AST 16 (13-39) Units/L ALT 17 (7-52) Units/L Alkaline Phosphatase 69 (34-104) Units/L Albumin 4.4 (3.5-5.7) g/dL Calcium panel 03/29/18 Range/Units 17:18 Calcium 9.2 (8.6-10.3) mg/dL Albumin 4.4 (3.5-5.7) g/dL Pituitary panel 03/29/18 Range/Units 17:18 Sodium 133 L (136-145) mEq/L Potassium 3.6 (3.5-5.1) mEq/L Chloride 103 (98-107) mEq/L Carbon Dioxide 17 L (23-29) mEq/L BUN 26 H (8-23) mg/dL Creatinine 0.83 (0.70-1.30) mg/dL Glucose 133 H (70-105) mg/dL Calcium 9.2 (8.6-10.3) mg/dL Adrenal panel 03/29/18 Range/Units 17:18 Sodium 133 L (136-145) mEq/L Potassium 3.6 (3.5-5.1) mEq/L Chloride 103 (98-107) mEq/L Carbon Dioxide 17 L (23-29) mEq/L BUN 26 H (8-23) mg/dL Creatinine 0.83 (0.70-1.30) mg/dL Glucose 133 H (70-105) mg/dL Calcium 9.2 (8.6-10.3) mg/dL Total Bilirubin 0.8 (0.3-1.0) mg/dL AST 16 (13-39) Units/L ALT 17 (7-52) Units/L Alkaline Phosphatase 69 (34-104) Units/L Albumin 4.4 (3.5-5.7) g/dL All other labs normal. - Imaging Additional studies: Outside ABD/Pelvis CT reveals a small fluid collection in the GB fossa. This maybe due to post-op change. Outside CBC revealed WBC 19. Today in [facility] WBC 14. LFTs wnl HIDA scan pending Consult Discharge Plan - Plan Referrals: [facility] [Primary Care Provider] -
[2018-03-30 07:42] VITALS: BP 102/61
[2018-03-30] MEDS: 0.9 % Sodium Chloride 1,000 ML IVC SCH (08:40)
[2018-03-30] MEDS ORDERED: Diltiazem CD (24hr) 240 MG CAPSULE PO SCH (09:00)
[2018-03-30] MEDS ORDERED: Isosorbide MONOnitrate (24 HR) 30 MG TAB.ER.24H PO SCH (09:00)
[2018-03-30 10:15] LABS: Basophils % 0.4 %; Eosinophils # 0.2 K/mcL (0.0-0.6); Eosinophils % 2.6 %; Hematocrit 38.3 % (37.5-50.1); Immature Granulocytes % 0.4 % (0-4); Lymphocytes # 2.4 K/mcL (0.6-4.6); Lymphocytes % 29.3 %; Mean Corpuscular HGB Conc 35.2 g/dL (31.6-35.5); Mean Corpuscular Volume 90.8 fL (83.0-100.0); Mean Platelet Volume 10.8 fL (9.4-12.4); Monocytes # 0.8 K/mcL (0.0-1.3); Monocytes % 9.7 %; Neutrophils # 4.8 K/mcL (1.6-8.9); Platelet Count 141 K/mcL (140-400); Red Blood Count 4.22 M/mcL (4.19-5.50); Red Cell Distribution Width 13.2 % (11.5-14.5); Segmented Neutrophils % 57.6 %
[2018-03-30 10:16] LABS: Hemoglobin 13.5 g/dL (12.9-16.9)
[2018-03-30 10:35] LABS: BUN/Creatinine Ratio 26 (6-26); Blood Urea Nitrogen 21 mg/dL (8-23); Calcium 8.1 mg/dL (8.6-10.3); Carbon Dioxide 18 mEq/L (23-29); Chloride 109 mEq/L (98-107); Glucose 110 mg/dL (70-105); Osmolality,Calculated 288 (280-300); Potassium 3.4 mEq/L (3.5-5.1); Sodium 137 mEq/L (136-145); eGFR For Non-African Americans > 60 (> 60)
--- NOTE | 2018-03-30 13:21 | Event Note ---
<Gretchen Rogers - Last Filed: 03/30/18 13:19> Date of Encounter: 03/30/18 Time of Encounter: 13:00 HIDA scan complete and is negative for post-operative bile leak. The patient was given a cardiac diet an has tolerated this without difficulty. Denies any nausea/vomiting. No fevers noted. Surgery will sign off at this time. Thank you for allowing us to participate in the care of this patient. Please call with any further questions/concerns. <Cruz Gifford - Last Filed: 03/31/18 10:04> Date of Encounter: 03/31/18 The patient is seen and evaluated on morning rounds. The hepatobiliary scan appears to be negative. His abdominal pain is resolved. No further follow-up with surgery is necessary. We will sign off Cruz Gifford MD FACS
--- NOTE | 2018-03-30 14:25 | Discharge Summary ---
- NOTES TO OUTPATIENT PROVIDER Notes to Outpatient Provider: Patient with a history of atrial fibrillation, coronary artery disease, hypertension, hyperlipidemia status post recent cholecystectomy was hospitalized here with complaints of fevers chills and abdominal pain. CT scan of the abdomen and pelvis showed intra-abdominal fluid collection and patient also had leukocytosis. As such he was started on IV antibiotics and surgery was consulted. Patient was evaluated by surgery and recommended a HIDA scan to look for any biliary leak. HIDA scan was completed last night and did not show any leak. Patient's pain has improved significantly today. He is now tolerating oral diet and has been cleared for discharge from surgical standpoint. Patient will be discharged home today. He will complete an empiric course of antibiotics to treat possible underlying infection. Orders not resulted at time of discharge: Pending orders 03/29/18 19:52 Culture,Blood [BC] Routine Date of Encounter: 03/30/18 Time of Encounter: 14:22 - Discharge Diagnosis (1) Abdominal pain Priority: Primary Status: Acute Qualifiers: Abdominal location: generalized Qualified Code(s): R10.84 - Generalized abdominal pain (2) Leukocytosis Priority: Secondary Status: Acute Assessment and Plan: Sepsis ruled out Qualifiers: Qualified Code(s): D72.829 - Elevated white blood cell count, unspecified (3) Atrial fibrillation Priority: Secondary Status: Acute Qualifiers: Atrial fibrillation type: paroxysmal Qualified Code(s): I48.0 - Paroxysmal atrial fibrillation (4) CAD (coronary artery disease) Priority: Secondary Status: Acute Qualifiers: Coronary Disease-Associated Artery/Lesion type: [place] artery [place] vs. transplanted heart: [place] heart Associated angina: angina presence unspecified Qualified Code(s): I25.10 - Atherosclerotic heart disease of [place] coronary artery without angina pectoris (5) DVT prophylaxis Priority: Secondary Status: Acute (6) Hypertension Priority: Secondary Status: Acute Qualifiers: Hypertension type: essential hypertension Qualified Code(s): I10 - [place] l (primary) hypertension (7) Intraabdominal fluid collection Priority: Secondary Status: Acute (8) S/P laparoscopic cholecystectomy Priority: Secondary Status: Acute Hospital course: Mr. Roman is a 63 year old male Patient with a history of atrial fibrillation, coronary artery disease, hypertension, hyperlipidemia status post recent cholecystectomy was hospitalized here with complaints of fevers chills and abdominal pain. CT scan of the abdomen and pelvis showed intra-abdominal fluid collection and patient also had leukocytosis. As such he was started on IV antibiotics and surgery was consulted. Patient was evaluated by surgery and recommended a HIDA scan to look for any biliary leak. HIDA scan was completed last night and did not show any leak. Patient's pain has improved significantly today. He is now tolerating oral diet and has been cleared for discharge from surgical standpoint. Patient will be discharged home today. He will complete an empiric course of antibiotics to treat possible underlying infection. Discharge discussed with: patient, nurse, clinical education consultant - Time Spent with Patient Total time spent providing and/or coordinating discharge services: Less than 30 minutes (25 min) - Discharge Medications Prescriptions: Amoxicillin/Clavulanate [Augmentin] 875 mg PO BIDWM #10 tablet Lactobacillus Acidophilus [Acidophilus] 1 each PO BID #10 capsule Home Medications: Aspirin Enteric Coated [Aspirin EC] 81 mg PO DAILY 07/14/15 [History] Omeprazole [PriLOSEC] 20 mg PO BID 07/14/15 [History] Rivaroxaban [Xarelto] 20 mg PO 1700 #30 tablet 07/16/15 [Rx] Ascorbic Acid [C-500] 500 mg PO DAILY 06/18/17 [History] Diltiazem HCl [Diltiazem 24Hr Cd] 240 mg PO DAILY 06/18/17 [History] Labetalol [Trandate] 50 mg PO BID 06/18/17 [History] Losartan [Cozaar] 50 mg PO DAILY 06/18/17 [History] [place]-3/Dha/Epa/Fish Oil [Fish Oil 1,000 mg Softgel] 1 cap PO DAILY 06/18/17 [History] Potassium Chloride [K-Tab ER] 10 meq PO BID 06/18/17 [History] Sertraline [Zoloft] 200 mg PO DAILY 06/18/17 [History] Isosorbide MONOnitrate (24 HR) [Imdur] 30 mg PO DAILY #30 tab.er.24h 06/19/17 [Rx] Buspirone HCl [Buspar] 10 mg PO BID 03/07/18 [History] Cholecalciferol (D-3) [Vitamin D] 2,000 unit PO DAILY 03/07/18 [History] Cyanocobalamin (Vitamin B-12) [Vitamin B-12] 1,000 mcg PO DAILY 03/07/18 [History] Docusate [Colace] 100 mg PO BID #30 capsule 03/07/18 [Rx] Allopurinol [Zyloprim] 300 mg PO DAILY 03/30/18 [History] Amoxicillin/Clavulanate [Augmentin] 875 mg PO BIDWM #10 tablet 03/30/18 [Rx] Atorvastatin [Lipitor] 20 mg PO HS 03/30/18 [History] Cetirizine HCl [24Hour Allergy] 10 mg PO HS 03/30/18 [History] Hydroxyzine HCl 10 mg PO BID PRN 03/30/18 [History] Lactobacillus Acidophilus [Acidophilus] 1 each PO BID #10 capsule 03/30/18 [Rx] Ondansetron HCl [Zofran] 4 mg PO QID PRN 03/30/18 [History] Oxycodone HCl/Acetaminophen [Percocet 5-325 mg Tablet] 1 each PO Q4H PRN 03/30/18 [History] Spironolactone [Aldactone] 25 mg PO BID 03/30/18 [History] Tizanidine HCl [Zanaflex] 4 mg PO HS 03/30/18 [History] Allergies/Adverse Reactions: Allergy/AdvReac Type Severity Reaction Status Date / Time No Known Allergies Allergy Verified 03/07/18 11:13 Date of admission: 03/29/18 22:15 [facility] care physician: [facility] Consults: 03/29/18 19:00 Consult to Surgery [CONS] Routine Consulting Provider: [facility] Reason for Consult: fluid collection s/p cholecystectomy Call Completed: Yes Discharging clinician: Chema Berrios Anticipated date of discharge: 03/30/18 - Constitutional Vitals: Temp Pulse Resp BP Pulse Ox 98.5 F 58 16 102/61 97 03/30/18 07:38 03/30/18 07:38 03/30/18 07:38 03/30/18 07:38 03/30/18 07:38 General appearance: Present: cooperative, A&O X 3, pleasant Exam: . - Neck Neck exam general surgery: Present: supple, trachea midline. Absent: lymphadenopathy - Respiratory Respiratory exam: Present: CTAB. Absent: accessory muscle use, rales, rhonchi, wheezes - Cardiovascular Cardiovascular exam: Present: RRR, +S1, +S2. Absent: diastolic murmur, gallop, rubs, systolic murmur - GI/Abdominal GI/Abdominal exam: Present: normal bowel sounds, soft, no peritoneal signs. Absent: distended, tenderness - Patient Status Disposition: Home, Self-Care Condition: Good Functional capacity at discharge: independent ambulation Overall status at discharge: patient is back to baseline - Discharge Instructions Follow Up With: [facility] [Primary Care Provider] - (in 1-2 weeks) Forms: ED Satisfaction Letter, Work/School Release - Diet and Activity Activity: increase activity as tolerated Diet: low fat, low cholesterol
== END 2018-03-30 16:28 | disposition home or self-care (01) | DRG 948 ==
LOC: EMEROOARM 16:53 → 3ANU 16:53 → SUATTDRO 22:15 → 3ANU 22:46
PROVIDERS: ADMIT Family Medicine; ATTEND Internal Medicine

== ENCOUNTER 2018-10-22 16:24 | Observation (INO) ==
--- NOTE | 2018-10-22 16:38 | Emergency Department Note ---
Disposition Clinical Impression: Atrial fibrillation with RVR Disposition: Admitted As Inpatient Condition: Fair Time of Disposition: 18:29 General Adult HPI - General Chief complaint: ED Chest Pain Stated complaint: chest pain Time Seen by Provider: 10/22/18 16:26 Source: patient, EMS Mode of arrival: EMS Limitations: no limitations Nursing Notes Reviewed: Yes Vital Signs Reviewed: Yes - History of Present Illness HPI Narrative: 63-year-old male with a past medical history of atrial fibrillation that had nausea, vomiting since and subsequently did not take any of his med ication on Wednesday or today. He started having chest pain at 1 in the morning this morning and went to the [facility] where they gave him 20 mg of diltiazem at 1520 and then transferred the patient here. Patient is also on Xarelto and has not taken his dose yesterday or today. Patient states that he felt too sick to take his medications and could not keep anything down. Currently patient does not have any chest pain, and is not complaining of any nausea, has not had any vomiting or diarrhea today. Patient's initial heart rate is in the 120s. - Related Data Home Medications Medication Instructions Recorded Confirmed Omeprazole [PriLOSEC] 20 mg PO BID 07/14/15 10/22/18 Diltiazem HCl [Diltiazem 24Hr Cd] 240 mg PO DAILY 06/18/17 10/22/18 Labetalol [Trandate] 50 mg PO BID 06/18/17 10/22/18 Losartan [Cozaar] 50 mg PO DAILY 06/18/17 10/22/18 [place]-3/Dha/Epa/Fish Oil [Fish Oil 1 cap PO DAILY 06/18/17 10/22/18 1,000 mg Softgel] Potassium Chloride [K-Tab ER] 10 meq PO BID 06/18/17 10/22/18 Sertraline [Zoloft] 200 mg PO DAILY 06/18/17 10/22/18 Buspirone HCl [Buspar] 10 mg PO BID 03/07/18 10/22/18 Cholecalciferol (D-3) [Vitamin D] 2,000 unit PO DAILY 03/07/18 10/22/18 Cyanocobalamin (Vitamin B-12) 1,000 mcg PO DAILY 03/07/18 10/22/18 [Vitamin B-12] Allopurinol [Zyloprim] 300 mg PO DAILY 03/30/18 10/22/18 Atorvastatin [Lipitor] 20 mg PO HS 03/30/18 10/22/18 Cetirizine HCl [24Hour Allergy] 10 mg PO HS 03/30/18 10/22/18 Hydroxyzine HCl 10 mg PO BID PRN 03/30/18 10/22/18 Ondansetron HCl [Zofran] 4 mg PO QID PRN 03/30/18 10/22/18 Spironolactone [Aldactone] 25 mg PO BID 03/30/18 10/22/18 Tizanidine HCl [Zanaflex] 4 mg PO HS 03/30/18 10/22/18 Previous Rx's Medication Instructions Recorded Rivaroxaban [Xarelto] 20 mg PO 1700 #30 tablet 07/16/15 Isosorbide MONOnitrate (24 HR) 30 mg PO DAILY #30 tab.er.24h 06/19/17 [Imdur] Allergies Allergy/AdvReac Type Severity Reaction Status Date / Time No Known Allergies Allergy Verified 03/07/18 11:13 Review of Systems: In addition to that documented in the HPI above, the additional ROS was obtained: Constitutional: Reports subjective fevers and chills over the last few days Eyes: Denies vision changes ENMT: Denies sore throat CV: Denies chest pain now, had chest pain earlier today start at 0100 this morning, substernal heaviness, none now Resp: Denies SOB GI: Denies vomiting or diarrhea Reports vomiting and nausea Thurs & Fri, none today : Denies painful urination Reports difficulty initiating urination, thinks its because he's dehydrated MSK: Denies recent trauma Skin: Denies new rashes Neuro: Denies new numbness or tingling or weakness Endocrine: Denies unexpected weight loss Heme: Denies bleeding disorders Past Medical History - Past Medical History Attestation: Yes The following information was validated with the patient. Medical history: Reports: atrial fibrillation, coronary artery disease, hyperlipidemia, hypertension, myocardial infarction, other Surgical history: Reports: cholecystectomy Psychiatric history: Reports: anxiety, depression, PTSD - Social History Smoking Status: Unknown if ever smoked Smokeless Tobacco Status: No Alcohol use: Reports: occasionally Drug use: Reports: none Physical Exam General: A&O x 3. No acute distress. Appears nervous. Well developed, well nourished. Head: atraumatic, normocephalic. ENT: No conjunctival injection, no scleral icterus. PERRLA. EOMI. Oropharynx non- erythematous. mucous membranes dry. Neuro: No focal deficits, no speech deficit, no facial droop, mentating well. BUE/BLE Str 5/5. Pulm: Lungs CTAB A/P. No wheezes, rales, ronchi. Cardio: Irregularly irregular and tachycardic. Chest not tender to palpation. Abd: Soft, non-distended. Normoactive bowel sounds. Non-tender to palpation. No guarding. Non rigid. Extremities: Radial pulses 2+ shannan, dorsalis pedis/posterior tibialis 2+ shannan. No LE edema. No cyanosis, clubbing. Skin: warm, dry, intact. No rashes. Psych: Appropriate mood and affect. Answers questions appropriately. Cooperative with exam. Course Vital Signs Temperature 98.7 F 10/22/18 16:31 Pulse Rate 123 10/22/18 16:31 Respiratory Rate 14 10/22/18 16:31 Blood Pressure 107/85 10/22/18 16:31 O2 Sat by Pulse Oximetry 96 10/22/18 16:31 Temperature 98.7 F 10/22/18 16:31 Pulse Rate 118 10/22/18 18:52 Respiratory Rate 16 10/22/18 18:52 Blood Pressure 121/90 10/22/18 18:52 O2 Sat by Pulse Oximetry 98 10/22/18 18:52 Oxygen Delivery Oxygen Delivery Room Air Medical Decision Making - [facility] Narrative Medical decision making narrative: 1639:63-year-old male with a past medical history of previous myocardial infarction, atrial fibrillation, that has missed 2 days of his medications due to illness. Presented to the [facility] with chest pain and tachycardia, he was given 20 g of diltiazem at the [facility] and then sent here. We will order a diltiazem drip. Suspect admission. 1931: Patient continued to have atrial fibrillation with rapid ventricular response while he was in the emergency department, diltiazem drip was initiated. Heart rate improved into the low 1 teens, patient had a elevated troponin at the outside facility of 0.045. It was thought that he could benefit from further inpatient workup. Patient was admitted to the hospitalist Dr. Bardales who agreed to set the patient to his service. Results of the workup including any imaging and/or labwork was shared with the patient at bedside. Patient was given an opportunity to ask questions at bedside and all of their concerns were addressed. Patient verbalized understanding and agreement with plan of care. Pt remained stable while in the department. - Medical Records Medical records reviewed: Yes I reviewed the patient's medical records. - Lab Data Lab results reviewed: Yes I reviewed the patient's lab results. Result diagrams: 10/22/18 18:43 - EKG Data EKG #1 EKG attestation: Yes I reviewed and interpreted this EKG. EKG results narrative: 1630: Heart rate 148, rhythm atrial fibrillation, axis normal. QTc 504 and borderline prolonged, QRS within normal limits. No ST segment elevation or depression. 1833: Heart rate 118, rhythm atrial fibrillation, axis normal. QRS 86, QTc [address] segment elevation or depression. When these EKGs are compared to the previous EKG dated 06/18/2017 the previous EKG shows sinus rhythm with marked sinus arrhythmia but does not show atrial fibrillation. Additionally intervals were within normal limits on the previous EKG. Attestation Statement - Attestation Attestation: I, Reese Child, examined this patient and my medical decision-making was reviewed with the DEVIL DOG/TOR/Advanced Practice Nurse/Resident Physician. I agree with the documented findings, disposition and treatment plan as described except to the extent set forth below. 63-year-old male presents emergency Department with concerns of chest pain. Tor perez initially presented to the [facility], he was found to have A. fib with RVR. Patient has a history of cardiac disease. He states he currently takes Xarelto for a history of A. fib. Patient was given diltiazem at the [facility] for treatment of his A. fib with RVR, he was sent to the emergency department [facility] for further care and evaluation and admission. Patient is awake alert and answering questions appropriately. Patient had an elevated troponin at the [facility] of 0.045. EKG showed A. fib with RVR.I reviewed the EKG with the resident and agree with the interpretation. He was given additional diltiazem for treatment of his tachycardia. Patient will be admitted for further care and evaluation.
[2018-10-22] MEDS ORDERED: Calcium Gluconate 2,000 MG in 0.9 % Sodium Chloride 100 ML IVPB ONE (16:41)
[2018-10-22] MEDS ORDERED: 0.9 % Sodium Chloride 1,000 ML IVC ONE (16:41)
[2018-10-22] MEDS ORDERED: Ondansetron ODT 4 MG TAB.RAPDIS PO PRN (19:30)
[2018-10-22] MEDS ORDERED: HydrOXYzine SYP 10 MG/5 ML UDC PO PRN (19:30)
[2018-10-22 19:52] LABS: Troponin I 0.07 ng/mL (< 0.04)
[2018-10-22 19:55] LABS: BUN/Creatinine Ratio 29 (6-26); Blood Urea Nitrogen 23 mg/dL (8-23); Calcium 9.6 mg/dL (8.6-10.3); Carbon Dioxide 12 mEq/L (23-29); Chloride 108 mEq/L (98-107); Glucose 120 mg/dL (70-105); Osmolality,Calculated 289 (280-300); Potassium 3.4 mEq/L (3.5-5.1); Sodium 137 mEq/L (136-145); eGFR For African Americans > 60 (> 60); eGFR For Non-African Americans > 60 (> 60)
[2018-10-22 19:56] LABS: Magnesium 1.9 mg/dL (1.6-2.6)
[2018-10-22] MEDS ORDERED: Potassium Chloride Elixir 20 MEQ/15 ML UDC PO ONE (20:01)
--- NOTE | 2018-10-22 20:11 | Internal Med History&Physical ---
Date of Encounter: 10/22/18 Time of Encounter: 20:08 Internal Medicine - H&P: HPI Chief complaint: afib Admitted From: Home Plans for Post Hospital Care: Home History of present illness: Trell Roman is a 63 year old man with hypertension, coronary artery disease and nonvalvular A. fib who presents here on transfer from the [facility] where he went initially with complaints of chest pain and palpitations. He says that on he developed nausea and vomiting that continued into Wednesday so for this 2 days he was unable to take his medications. On Wednesday night he developed chest pain that was midsternal and pressure-like that continued into Wednesday morning accompanied by palpitations so he went to the [facility] where he was found to be in atrial fibrillation with rapid ventricular response and transferred here for further care. On arrival here his chest pain had resolved and denied having any nausea and vomiting since yesterday morning and never had an episode of diarrhea. He continued to be in A. fib with RVR and was placed on diltiazem drip after having received an IV push at the [facility] before his transfer here. The time of my assessment he is comfortable and denies any complaints. Vitals: Reviewed General: Well-developed white male lying comfortably in bed in no acute distress. Skin: Warm and dry. HEENT: Moist mucous membranes. No conjunctivae pallor. Neck: No lymphadenopathy. No JVD. No carotid bruits. No palpable thyroid. Chest: Normal thoracic expansion. Normal breath sounds. Clear to auscultation. Heart: Irregularly irregular. Abdomen: Non-distended, soft and non-tender to palpation. No peritoneal reaction. Extremities: No clubbing, cyanosis or edema. No calf tenderness. Normal distal pulses. Neurological: Awake, alert and oriented to person, place and time. No focal deficits. Psych: Affect appropriate. Assessment/Plan 1. A. fib with RVR: Suspect secondary to non-adherence to medications as he has been off for the past 3 days due to his GI symptoms. He has also not taken his anticoagulant therapy. Will continue diltiazem drip and administer IVP metoprolol prn then transition to oral once rate control is achieved. Resume rivaroxaban today as he is now able to tolerate PO. 2. Elevated troponin: Suspect secondary to demand ischemia in the setting of his tachyarrhythmia. Will continue to monitor trend however given his reported history of CAD to ensure an acute coronary syndrome is not at play causing this RVR. 3. Hypertension: Current BP is stable. Continue ARB & BB. 4. Coronary artery disease: Had a cardiac catheter in 2013 with minor CAD and major vessels and severe disease in small vessels. Continue medical management. 5. Hyperlipidemia: On atorvastatin. Past Med Surg Social Fam HX - Past Medical History Medical history: atrial fibrillation, coronary artery disease, hyperlipidemia, hypertension, myocardial infarction, other Additional medical history: anxiety. NSTEMI. PTSD. Gastroenteritis. Esophageal refulx. Gout. ED Psychiatric history: anxiety, depression, PTSD - Past Surgical History Surgical History: cholecystectomy Additional surgical history: cardiac cath. EGD - Social History Smoking Status: Unknown if ever smoked Smokeless Tobacco Status: No Alcohol use: occasionally Drug use: none - Family History Father Adopted: No Hx Family Cardiac Disorders: Yes (ANGINA.) Mother Adopted: No Living Status: Hx Family Neurologic Disorders: Yes (ALZHIROSIERS) Internal Medicine - H&P: Meds Omeprazole [PriLOSEC] 20 mg PO BID 07/14/15 [History] Rivaroxaban [Xarelto] 20 mg PO 1700 #30 tablet 07/16/15 [Rx] Diltiazem HCl [Diltiazem 24Hr Cd] 240 mg PO DAILY 06/18/17 [History] Labetalol [Trandate] 50 mg PO BID 06/18/17 [History] Losartan [Cozaar] 50 mg PO DAILY 06/18/17 [History] [place]-3/Dha/Epa/Fish Oil [Fish Oil 1,000 mg Softgel] 1 cap PO DAILY 06/18/17 [History] Potassium Chloride [K-Tab ER] 10 meq PO BID 06/18/17 [History] Sertraline [Zoloft] 200 mg PO DAILY 06/18/17 [History] Isosorbide MONOnitrate (24 HR) [Imdur] 30 mg PO DAILY #30 tab.er.24h 06/19/17 [Rx] Buspirone HCl [Buspar] 10 mg PO BID 03/07/18 [History] Cholecalciferol (D-3) [Vitamin D] 2,000 unit PO DAILY 03/07/18 [History] Cyanocobalamin (Vitamin B-12) [Vitamin B-12] 1,000 mcg PO DAILY 03/07/18 [History] Allopurinol [Zyloprim] 300 mg PO DAILY 03/30/18 [History] Atorvastatin [Lipitor] 20 mg PO HS 03/30/18 [History] Cetirizine HCl [24Hour Allergy] 10 mg PO HS 03/30/18 [History] Hydroxyzine HCl 10 mg PO BID PRN 03/30/18 [History] Ondansetron HCl [Zofran] 4 mg PO QID PRN 03/30/18 [History] Spironolactone [Aldactone] 25 mg PO BID 03/30/18 [History] Tizanidine HCl [Zanaflex] 4 mg PO HS 03/30/18 [History] Allergy/AdvReac Type Severity Reaction Status Date / Time No Known Allergies Allergy Verified 03/07/18 11:13 All Systems PM: A 10-system review of systems was performed and is negative for pertinent findings except as documented above in the HPI. - Constitutional Vitals: Temp Pulse Resp BP Pulse Ox 98.7 F 101 19 132/93 97 10/22/18 16:31 10/22/18 19:45 10/22/18 19:45 10/22/18 19:45 10/22/18 19:45 Exam: . Internal Med - H&P Results - Labs CBC & Chem 7: 10/22/18 18:43 Labs: BMP 10/22/18 18:43 Sodium 137 Potassium 3.4 L Chloride 108 H Carbon Dioxide 12 L BUN 23 Creatinine 0.80 Glucose 120 H Calcium 9.6 Cardiac Enzymes 10/22/18 Range/Units 18:43 Troponin I 0.07 H* (< 0.04) ng/mL - Time Spent With Patient Total time spent is greater than 50% in coordination of care (as documented) at patient's floor/unit and/or counseling patient:
[2018-10-22] MEDS ORDERED: *HR* Metoprolol 5 MG/5 ML VIAL IVP ONE (21:00)
[2018-10-22 21:04] LABS: Heparin anti-factor XA UFH 0.08 IU/mL (0.30-0.70)
[2018-10-22 21:05] LABS: Prothrombin Time 11.5 Seconds (9.4-12.1)
[2018-10-22 21:07] LABS: Activated Partial Thrombo Time 27.1 Seconds (26.0-36.0)
[2018-10-22] MEDS: Loratadine 10 MG TABLET PO SCH (21:39)
[2018-10-22] MEDS: Spironolactone 25 MG TABLET PO SCH (21:39)
[2018-10-22] MEDS: tiZANidine 4 MG TABLET PO SCH (21:39)
[2018-10-22] MEDS: *HR* Rivaroxaban 10 MG TABLET PO SCH (21:39)
[2018-10-23 06:26] LABS: Basophils # 0.1 K/mcL (0.0-0.2); Basophils % 0.6 %; Eosinophils # 0.2 K/mcL (0.0-0.6); Eosinophils % 1.6 %; Hematocrit 46.4 % (37.5-50.1); Hemoglobin 16.2 g/dL (12.9-16.9); Immature Granulocytes % 0.9 % (0-4); Lymphocytes # 2.7 K/mcL (0.6-4.6); Lymphocytes % 23.1 %; Mean Corpuscular HGB Conc 34.9 g/dL (31.6-35.5); Mean Corpuscular Hemoglobin 33.4 pg (28.0-33.3); Mean Corpuscular Volume 95.7 fL (83.0-100.0); Mean Platelet Volume 10.9 fL (9.4-12.4); Monocytes # 1.2 K/mcL (0.0-1.3); Monocytes % 10.3 %; Neutrophils # 7.4 K/mcL (1.6-8.9); Platelet Count 153 K/mcL (140-400); Red Blood Count 4.85 M/mcL (4.19-5.50); Red Cell Distribution Width 12.8 % (11.5-14.5); Segmented Neutrophils % 63.5 %; White Blood Count 11.7 K/mcL (4.3-11.1)
[2018-10-23 06:46] LABS: BUN/Creatinine Ratio 29 (6-26); Blood Urea Nitrogen 21 mg/dL (8-23); Calcium 9.2 mg/dL (8.6-10.3); Carbon Dioxide 21 mEq/L (23-29); Chloride 104 mEq/L (98-107); Glucose 129 mg/dL (70-105); Osmolality,Calculated 289 (280-300); Potassium 3.5 mEq/L (3.5-5.1); Sodium 137 mEq/L (136-145); eGFR For African Americans > 60 (> 60); eGFR For Non-African Americans > 60 (> 60)
[2018-10-23 06:52] LABS: Troponin I 0.06 ng/mL (< 0.04)
[2018-10-23] MEDS: Spironolactone 25 MG TABLET PO SCH ×2 (08:36→19:55)
[2018-10-23] MEDS: Cholecalciferol (D-3) 1,000 UNIT (25MCG) TABLET PO SCH (08:36)
[2018-10-23] MEDS: Cyanocobalamin (B-12) 1,000 MCG TABLET PO SCH (08:37)
[2018-10-23] MEDS: Diltiazem CD (24hr) 240 MG CAPSULE PO SCH (08:38)
[2018-10-23] MEDS: Isosorbide MONOnitrate (24 HR) 30 MG TAB.ER.24H PO SCH (08:38)
[2018-10-23] MEDS ORDERED: NON-FORMULARY MEDICATION 1 EACH EACH (Omega-3/Dha/Epa/Fish Oil [Fish Oil 1,000 Mg Softgel] PO SCH (09:00)
--- NOTE | 2018-10-23 10:15 | Internal Med Progress Note ---
Hospitalist Progress Note - Encounter Date of Encounter: 10/23/18 Time of Encounter: 08:30 - Subjective Interval History: H&P reviewed. 63-year-old male with history of hypertension, CAD, atrial fibrillation on Xarelto, was admitted overnight due to afib with RVR. Minimal troponin elevation that showed flat and adynamic pattern since presentation. Patient currently denies any chest pain, palpitation, orthopnea, PND, leg swelling. No recent illnesses, cough, sputum production, or fever/chills. - Exam Vitals: Temp Pulse Resp BP Pulse Ox 98.3 F 96 14 113/97 96 10/23/18 06:43 10/23/18 06:43 10/23/18 06:43 10/23/18 06:43 10/23/18 06:43 Exam: General: Alert and oriented, not in acute distress. Cardiovascular:Normal S1 & S2, No JVD. Pulse irregular and tachycardic Lungs: clear to auscultation, no wheezes/rales Abdomen:Soft, non-tender, no rigidity. Extremities:No deformity or swelling Neurological:Normal cognition and motor skills. Non-focal - Assessment and Plan (1) Atrial fibrillation with RVR Current Visit: Yes Status: Acute Assessment and Plan: currently on diltiazem gtt, continue with HR goal < 110 resume home dose of PO Diltiazem and labetalol continue Xarelto for AC check TSH echocardiogram (2) Troponin level elevated Current Visit: Yes Status: Acute Assessment and Plan: [id number], no ischemic changes on EKG Likely demand ischemia due to A. fib with RVR as above check echocardiogram (3) CAD (coronary artery disease) Current Visit: Yes Status: Chronic Assessment and Plan: Resume home meds (4) Hypertension Current Visit: No Status: Chronic Assessment and Plan: resume home meds (5) DVT prophylaxis Current Visit: No Status: Acute Assessment and Plan: On Xarelto - Time Spent with Patient Total time spent is greater than 50% in coordination of care (as documented) at patient's floor/unit and/or counseling patient: 25 - 35 minutes Plan of Care Discussed with: patient Internal Medicine: Result - Labs CBC & Chem 7: 10/23/18 05:58 10/23/18 05:58 Labs: Short CBC 09/01/19 Range/Units 05:58 WBC 11.7 H (4.3-11.1) K/mcL Hgb 16.2 (12.9-16.9) g/dL Hct 46.4 (37.5-50.1) % Plt Count 153 (140-400) K/mcL Neutrophils # 7.4 (1.6-8.9) K/mcL BMP 10/22/18 10/23/18 18:43 05:58 Sodium 137 137 Potassium 3.4 L 3.5 Chloride 108 H 104 Carbon Dioxide 12 L 21 L BUN 23 21 Creatinine 0.80 0.73 Glucose 120 H 129 H Calcium 9.6 9.2 Cardiac Enzymes 10/22/18 10/23/18 10/23/18 Range/Units 18:43 00:03 05:58 Troponin I 0.07 H* 0.07 H* 0.06 H* (< 0.04) ng/mL - ABG Interpretation ABG results: PT/INR, D-dimer PT 11.5 Seconds (9.4-12.1) 10/22/18 20:16 Consult Discharge Plan - Plan [facility]errals: [facility]Primary Care Provider[facility] - ____ (3) CAD (coronary artery disease) Qualifiers: Coronary Disease-Associated Artery/Lesion type: [place] artery [place] vs. transplanted heart: [place] heart Associated angina: without angina Qualified Code(s): I25.10 - Atherosclerotic heart disease of [place] coronary artery withou t angina pectoris (4) Hypertension Qualifiers: Hypertension type: essential hypertension Qualified Code(s): I10 - Essential (primary) hypertension
[2018-10-23 11:06] LABS: Thyroid Stimulating Hormone 1.334 mcIU/mL (0.340-5.600)
[2018-10-23] MEDS: Aspirin Enteric Coated 81 MG Tablet PO SCH (12:33)
[2018-10-23] MEDS: *HR* Rivaroxaban 10 MG TABLET PO SCH (16:38)
[2018-10-23] MEDS ORDERED: *HR* Rivaroxaban 10 MG TABLET PO SCH (17:00)
[2018-10-23] MEDS: tiZANidine 4 MG TABLET PO SCH (19:55)
[2018-10-23] MEDS: Loratadine 10 MG TABLET PO SCH (19:55)
[2018-10-24 06:22] LABS: Hemoglobin 15.8 g/dL (12.9-16.9); Mean Corpuscular HGB Conc 35.1 g/dL (31.6-35.5); Mean Corpuscular Hemoglobin 32.8 pg (28.0-33.3); Mean Corpuscular Volume 93.4 fL (83.0-100.0); Mean Platelet Volume 11.2 fL (9.4-12.4); Platelet Count 157 K/mcL (140-400); Red Blood Count 4.82 M/mcL (4.19-5.50); Red Cell Distribution Width 12.6 % (11.5-14.5); White Blood Count 12.1 K/mcL (4.3-11.1)
[2018-10-24 06:42] LABS: BUN/Creatinine Ratio 25 (6-26); Blood Urea Nitrogen 21 mg/dL (8-23); Calcium 9.2 mg/dL (8.6-10.3); Carbon Dioxide 22 mEq/L (23-29); Chloride 104 mEq/L (98-107); Glucose 124 mg/dL (70-105); Magnesium 1.9 mg/dL (1.6-2.6); Osmolality,Calculated 286 (280-300); Potassium 3.6 mEq/L (3.5-5.1); Sodium 136 mEq/L (136-145); eGFR For African Americans > 60 (> 60); eGFR For Non-African Americans > 60 (> 60)
[2018-10-24 07:31] VITALS: BP 118/84
[2018-10-24] MEDS ORDERED: Perflutren Lipid Microsphere 1.3 ML in 0.9 % Sodium Chloride 8.7 ML IVP ONE (07:36)
--- NOTE | 2018-10-24 09:05 | Discharge Summary ---
- NOTES TO OUTPATIENT PROVIDER Notes to Outpatient Provider: Follow-up with PCP and cardiology as outpatient. Date of Encounter: 10/24/18 Time of Encounter: 07:30 - Discharge Diagnosis (1) Atrial fibrillation with RVR Priority: Primary Status: Acute (2) Troponin level elevated Priority: Secondary Status: Acute (3) CAD (coronary artery disease) Priority: Secondary Status: Chronic Qualifiers: Coronary Disease-Associated Artery/Lesion type: [place] artery [place] vs. transplanted heart: [place] heart Associated angina: without angina Qualified Code(s): I25.10 - Atherosclerotic heart disease of [place] coronary artery without angina pectoris (4) Hypertension Priority: Secondary Status: Chronic Qualifiers: Hypertension type: essential hypertension Qualified Code(s): I10 - Essential (primary) hypertension (5) DVT prophylaxis Priority: Secondary Status: Acute Hospital course: Mr. Roman is a 63 year old male with history of hypertension, CAD, atrial fibrillation on Xarelto, who wa day and was able to control his HR even after discontinuing thas admitted overnight due to afib with RVR. Minimal troponin elevation of 0.07 that showed flat and adynamic pattern since presentation. Initially required Cardizem drip. Given his borderline blood pressure, labetalol was switched to metoprolol 50 mg twice e cardizem gtt. Echocardiogram showed preserved EF and he will be discharged in stable condition on 10/24 with outpatient cardiology follow up. Discharge discussed with: patient, nurse - Time Spent with Patient Total time spent providing and/or coordinating discharge services: 27 mins - Discharge Medications Prescriptions: New Metoprolol [Lopressor] 50 mg PO BID #60 tablet Continued Omeprazole [PriLOSEC] 20 mg PO BID Rivaroxaban [Xarelto] 20 mg PO 1700 #30 tablet Sertraline [Zoloft] 200 mg PO DAILY Potassium Chloride [K-Tab ER] 10 meq PO BID [place]-3/Dha/Epa/Fish Oil [Fish Oil 1,000 mg Softgel] 1 cap PO DAILY Losartan [Cozaar] 25 mg PO DAILY Isosorbide MONOnitrate (24 HR) [Imdur] 30 mg PO DAILY #30 tab.er.24h Cholecalciferol (D-3) [Vitamin D] 2,000 unit PO DAILY Cyanocobalamin (Vitamin B-12) [Vitamin B-12] 1,000 mcg PO DAILY Allopurinol [Zyloprim] 300 mg PO DAILY Atorvastatin [Lipitor] 20 mg PO HS Hydroxyzine HCl 10 mg PO BID PRN PRN Reason: Anxiety Spironolactone [Aldactone] 25 mg PO BID Tizanidine HCl [Zanaflex] 4 mg PO HS Cetirizine HCl [24Hour Allergy] 10 mg PO HS Acetaminophen [Tylenol] 325 mg PO Q6HR PRN PRN Reason: Pain Ascorbic Acid [Vitamin C] 500 mg PO DAILY Aspirin [Lo-Dose Aspirin EC] 81 mg PO DAILY Buspirone HCl [Buspar] 15 mg PO DAILY Diltiazem CD (24hr) [Cardizem CD] 240 mg PO DAILY Ferrous Sulfate [Iron] 325 mg PO BID Discontinued Labetalol [Trandate] 50 mg PO BID Home Medications: Omeprazole [PriLOSEC] 20 mg PO BID 07/14/15 [History] Rivaroxaban [Xarelto] 20 mg PO 1700 #30 tablet 07/16/15 [Rx] Losartan [Cozaar] 25 mg PO DAILY 06/18/17 [History] [place]-3/Dha/Epa/Fish Oil [Fish Oil 1,000 mg Softgel] 1 cap PO DAILY 06/18/17 [History] Potassium Chloride [K-Tab ER] 10 meq PO BID 06/18/17 [History] Sertraline [Zoloft] 200 mg PO DAILY 06/18/17 [History] Isosorbide MONOnitrate (24 HR) [Imdur] 30 mg PO DAILY #30 tab.er.24h 06/19/17 [Rx] Cholecalciferol (D-3) [Vitamin D] 2,000 unit PO DAILY 03/07/18 [History] Cyanocobalamin (Vitamin B-12) [Vitamin B-12] 1,000 mcg PO DAILY 03/07/18 [History] Allopurinol [Zyloprim] 300 mg PO DAILY 03/30/18 [History] Atorvastatin [Lipitor] 20 mg PO HS 03/30/18 [History] Cetirizine HCl [24Hour Allergy] 10 mg PO HS 03/30/18 [History] Hydroxyzine HCl 10 mg PO BID PRN 03/30/18 [History] Spironolactone [Aldactone] 25 mg PO BID 03/30/18 [History] Tizanidine HCl [Zanaflex] 4 mg PO HS 03/30/18 [History] Acetaminophen [Tylenol] 325 mg PO Q6HR PRN 10/23/18 [History] Ascorbic Acid [Vitamin C] 500 mg PO DAILY 10/23/18 [History] Aspirin [Lo-Dose Aspirin EC] 81 mg PO DAILY 10/23/18 [History] Buspirone HCl [Buspar] 15 mg PO DAILY 10/23/18 [History] Diltiazem CD (24hr) [Cardizem CD] 240 mg PO DAILY 10/23/18 [History] Ferrous Sulfate [Iron] 325 mg PO BID 10/23/18 [History] Metoprolol [Lopressor] 50 mg PO BID #60 tablet 10/24/18 [Rx] Allergies/Adverse Reactions: Allergy/AdvReac Type Severity Reaction Status Date / Time No Known Allergies Allergy Verified 03/07/18 11:13 Date of admission: 10/22/18 18:38 [facility] - Constitutional Vitals: Temp Pulse Resp BP Pulse Ox 98.4 F 85 16 118/84 95 10/24/18 07:28 10/24/18 07:28 10/24/18 07:28 10/24/18 07:28 10/24/18 07:28 Exam: General: Alert and oriented, not in acute distress. Cardiovascular:Normal S1 & S2, No JVD. Pulse irregular but normal rate Lungs: clear to auscultation, no wheezes/rales Abdomen:Soft, non-tender, no rigidity. Extremities:No deformity or swelling Neurological:Normal cognition and motor skills. Non-focal - Patient Status Disposition: Home, Self-Care Condition: Fair Functional capacity at discharge: independent ambulation Overall status at discharge: patient is progressing back to baseline - Discharge Instructions Instructions: Atrial Fibrillation (DC) Follow [facility] With: [facility] [Primary Care Provider] - - Diet and Activity Activity: resume usual activities as tolerated Diet: low salt diet
[2018-10-24] MEDS: Cyanocobalamin (B-12) 1,000 MCG TABLET PO SCH (09:27)
[2018-10-24] MEDS: Aspirin Enteric Coated 81 MG Tablet PO SCH (09:27)
[2018-10-24] MEDS: Cholecalciferol (D-3) 1,000 UNIT (25MCG) TABLET PO SCH (09:28)
[2018-10-24] MEDS: Spironolactone 25 MG TABLET PO SCH (09:28)
[2018-10-24] MEDS: Diltiazem CD (24hr) 240 MG CAPSULE PO SCH (09:28)
[2018-10-24] MEDS: Isosorbide MONOnitrate (24 HR) 30 MG TAB.ER.24H PO SCH (09:28)
--- NOTE | 2018-10-27 11:09 | Electrocardiograph Report ---
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
--- NOTE | 2018-10-27 11:10 | Electrocardiograph Report ---
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
== END 2018-10-24 12:38 | disposition home or self-care (01) ==
LOC: EMEROOARM 16:24 → 2NENU 16:24
PROVIDERS: ADMIT Internal Medicine; ATTEND Internal Medicine